=== PATIENT | male | born 1985 | race Caucasian/White ===

== ENCOUNTER 2020-04-21 07:06 | Outpatient (REF) | payer OTHER, SELFPAY ==
[2020-04-21 07:30] LABS: COVID-19 Test Negative (Negative)
== END 2020-04-21 07:07 | disposition home or self-care (01) ==
LOC: HO.EMPCOV 07:06
PROVIDERS: Visit Provider Internal Medicine
DX: Z20.828 Contact with and (suspected) exposure to other viral communicable diseases (principal)
CPT/HCPCS: 87635; C9803

== ENCOUNTER 2022-06-19 13:55 | Emergency (ER) | payer OTHER, SELFPAY ==
--- NOTE | 2022-06-19 14:16 | ECG_ITS ---
Test Reason : cp Blood Pressure : / mmHG Vent. Rate : 080 BPM Atrial Rate : 080 BPM P-R Int : 142 ms QRS Dur : 092 ms QT Int : 360 ms P-R-T Axes : 047 023 039 degrees QTc Int : 415 ms Normal sinus rhythm with sinus arrhythmia Normal ECG No previous ECGs available Referred By: Generic ED Physician Electronically Signed By:DIANDRA MOTTA MD
[2022-06-19 14:49] VITALS: BP 135/86; PULSE 79; RESP 16; O2SAT 97; BMI 28.8
--- NOTE | 2022-06-19 14:50 | ED_ITS ---
HPI - General Adult General Chief complaint: Abdominal Pain <NAHOMY Cagle Last Filed: 07/02/22 09:39> Stated complaint: Chest pain <NAHOMY Cagle Last Filed: 07/02/22 09:39> Time Seen by Provider: 06/19/22 15:57 <NAHOMY Cagle Last Filed: 07/02/22 09:39> Source: patient <NAHOMY Gonzales Last Filed: 06/19/22 18:49> Mode of arrival: ambulatory <NAHOMY Gonzales Last Filed: 06/19/22 18:49> History of Present Illness HPI narrative: 36-year-old male with no significant medical history presenting to the ED complaining of epigastric abdominal pain radiating to chest x1 week. Admits pain initially intermittent and now constant. He denies change in symptoms with eating. Denies fever, chills, nausea, vomiting, dysuria/hematuria, SOB <NAHOMY Gonzales Last Filed: 06/19/22 18:49> Onset (ago): week(s) <NAHOMY Gonzales Last Filed: 06/19/22 18:49> Related Data Home medications: Previous Rx's Medication Instructions Recorded aluminum-mag hydroxide-simethicone 5 ml PO 5XD PRN dyspepsia #30 mL 06/19/22 200 mg-200 mg-20 mg/5 mL oral susp (Maalox Advanced) omeprazole 20 mg capsule,delayed 20 mg PO DAILY #14 caps 06/19/22 release <NAHOMY Cagle Last Filed: 07/02/22 09:39> Allergies/adverse reactions: Allergies Allergy/AdvReac Type Severity Reaction Status Date / Time No Known Allergies Allergy Verified 06/19/22 14:49 <NAHOMY Cagle Last Filed: 07/02/22 09:39> Review of Systems Review of Systems: Constitutional: No Fever, No Chills, No Fatigue, No Malaise ENT/Mouth: No Ear Pain, No Nasal Congestion, No sore throat, No Rhinorrhea, No Swallowing Difficulty Cardiovascular: + Chest Pain, No SOB, No Edema, No Palpitations Respiratory: No Cough, No Sputum, No Dyspnea Gastrointestinal: No Nausea, No Vomiting, No Diarrhea, No Constipation, + Abdominal pain Genitourinary: No Dysuria, No Urinary Frequency, No Hematuria, No Urinary Incontinence/retention, No Flank Pain Musculoskeletal: No joint pain, No Myalgias, No Joint Swelling Skin: No Skin Lesions, No rash Neuro: No Weakness, No Dizziness, No Headache <NAHOMY Gonzales Last Filed: 06/19/22 18:49> Yes all other systems are reviewed and are negative <NAHOMY Gonzales - Last Filed: 06/19/22 18:49> Constitutional: Constitutional: Reports as per HPI <NAHOMY Gonzales - Last Filed: 06/19/22 18:49> [facility] Past Medical History Attestation statement: The following information was validated with the patient. <NAHOMY Gonzales Last Filed: 06/19/22 18:49> Social History Social History: Social History Advance Directives: No Advance Directives Information Provided: Yes <NAHOMY Cagle - Last Filed: 07/02/22 09:39> Physical Exam ED Vital Signs: Vital Signs - 24 hr 06/19/22 14:49 Pulse Rate 79 Respiratory Rate 16 Blood Pressure 135/86 Pulse Oximetry 97 Oxygen Delivery Method Room Air BMI result Body Mass Index 28.8 <NAHOMY Cagle - Last Filed: 07/02/22 09:39> Vital Signs - 24 hr 06/19/22 14:49 Pulse Rate 79 Respiratory Rate 16 Blood Pressure 135/86 Pulse Oximetry 97 Oxygen Delivery Method Room Air BMI result Body Mass Index 28.8 <NAHOMY Gonzales Last Filed: 06/19/22 18:49> Const General: cooperative, healthy appearing and no acute distress <NAHOMY Gonzales Last Filed: 06/19/22 18:49> Orientation/consciousness: patient oriented x3 <NAHOMY Gonzales Last Filed: 06/19/22 18:49> Limitations: no limitations <NAHOMY Gonzales Last Filed: 06/19/22 18:49> HENMT Head: Yes normal to inspection and Yes atraumatic <NAHOMY Gonzales - Last Filed: 06/19/22 18:49> Ears: hearing grossly normal bilaterally <Yudy Whittaker PA - Last Filed: 06/19/22 18:49> General nose exam: Normal external nose present <Yudy Whittaker PA - Last Filed: 06/19/22 18:49> Face and sinus: Yes normal facial exam <Yudy Whittaker PA - Last Filed: 06/19/22 18:49> Eyes General: appearance normal, both eyes and all related structures <Yudy Whittaker PA - Last Filed: 06/19/22 18:49> EOM: EOMs intact bilaterally <Yudy Whittaker PA - Last Filed: 06/19/22 18:49> Neck Neck: Yes normal visual inspection and Yes no meningeal signs <Yudy Whittaker PA - Last Filed: 06/19/22 18:49> Resp Effort & Inspection: normal respiratory effort and no respiratory distress <Yudy Whittaker PA - Last Filed: 06/19/22 18:49> Auscultation: clear to auscultation bilaterally, no crackles, no rales and no rhonchi <Yudy Whittaker PA - Last Filed: 06/19/22 18:49> Cardio Rate: regular rate <Yudy Whittaker PA - Last Filed: 06/19/22 18:49> Heart sounds: S1 normal heart sound present and S2 normal heart sound present <Yudy Whittaker PA - Last Filed: 06/19/22 18:49> GI Inspection: Yes normal to inspection <Yudy Whittaker PA - Last Filed: 06/19/22 18:49> Palpation (GI): Soft to palpation, Tenderness to palpation present (GI) in the epigastrum; Pritchett's sign negative and with no rebound tenderness, no guarding and not rigid <Yudy Whittaker PA - Last Filed: 06/19/22 18:49> General: Yes no CVA tenderness <Yudy Whittaker PA - Last Filed: 06/19/22 18:49> Back/Spine/Pelvis Back: no CVA tenderness <Yudy Whittaker PA - Last Filed: 06/19/22 18:49> Skin Rashes: no rashes <YudyNAHOMY Gann Last Filed: 06/19/22 18:49> Wounds: no wounds <NAHOMY Gonzales Last Filed: 06/19/22 18:49> Neuro General: patient oriented x3, tone normal and no meningeal signs <NAHOMY Gonzales Last Filed: 06/19/22 18:49> Gait exam (Neuro): Normal gait present <NAHOMY Gonzales Last Filed: 06/19/22 18:49> Extrem General: Yes normal to inspection <NAHOMY Gonzales Last Filed: 06/19/22 18:49> Course Course Course Narrative: RME: 36 yold male presents to the ED for epigastric pain for one week. patient states no nausea or emesis. Patient states no recent trauma. patient staes at times having burning sensation at night. EKG already done and labs ordered. positive for epigastric tenderness on palpation. negative pritchett sign <NAHOMY Cagle Last Filed: 07/02/22 09:39> RME: 36 yold male presents to the ED for epigastric pain for one week. patient states no nausea or emesis. Patient states no recent trauma. patient staes at times having burning sensation at night. EKG already done and labs ordered. positive for epigastric tenderness on palpation. negative pritchett sign -1755--no leukocytosis. H&H stable. BUN minimally elevated to 18. Initial troponin 5.2 > will obtain 3 hour repeat -1849--repeat troponin without 50% rise, [place] unlikely Results discussed with patient including worrisome signs and symptoms and strict return precautions, and when to return to the emergency department. They verbalized understanding and feel safe for discharge at this time. <NAHOMY Gonzales Last Filed: 06/19/22 18:49> Medications Administered Discontinued Medications Generic Name Dose Route Start Last Admin Trade Name Freq PRN Reason Stop Dose Admin Al Hydroxide/Mg Hydroxide 30 ml 06/19/22 16:04 06/19/22 18:26 Magnesium Hydrox/Alum Hydrox 30 Ml Oral.Susp PO 06/19/22 16:05 30 ml ONCE ONE Administration Famotidine 20 mg 06/19/22 16:04 06/19/22 18:26 Famotidine 20 Mg Tablet PO 06/19/22 16:05 20 mg ONCE ONE Administration Lidocaine HCl 15 ml 06/19/22 16:04 06/19/22 18:26 Lidocaine Hcl Viscous 2 % 15 Ml Solution MUCOUS MEM 06/19/22 16:05 15 ml ONCE ONE Administration <NAHOMY Cagle - Last Filed: 07/02/22 09:39> Medications Administered Discontinued Medications Generic Name Dose Route Start Last Admin Trade Name Aubree PRN Reason Stop Dose Admin Al Hydroxide/Mg Hydroxide 30 ml 06/19/22 16:04 06/19/22 18:26 Magnesium Hydrox/Alum Hydrox 30 Ml Oral.Susp PO 06/19/22 16:05 30 ml ONCE ONE Administration Famotidine 20 mg 06/19/22 16:04 06/19/22 18:26 Famotidine 20 Mg Tablet PO 06/19/22 16:05 20 mg ONCE ONE Administration Lidocaine HCl 15 ml 06/19/22 16:04 06/19/22 18:26 Lidocaine Hcl Viscous 2 % 15 Ml Solution MUCOUS MEM 06/19/22 16:05 15 ml ONCE ONE Administration <NAHOMY Gonzales - Last Filed: 06/19/22 18:49> Medical Decision Making Medical Decision Making MDM Narrative: 36-year-old male with no significant medical history presenting to the ED complaining of epigastric abdominal pain radiating to chest x1 week. On exam vital signs stable, NAD, nontoxic appearing, lungs CTA, abdomen soft with mild epigastric tenderness, no rebound or guarding. Concern for gastritis/GERD vs PUD vs pancreatitis. Symptoms atypical for ACS or PE. Lower suspicion for cholecystitis/lithiasis or renal stone/pyelo Plan: EKG, labs, COVID-19/influenza/RSV testing, GI cocktail Please refer to course for remaining clinical decision making, interpretation of labs/imaging results, and discussions with consultants and/or family members. <NAHOMY Gonzales - Last Filed: 06/19/22 18:49> Differential Diagnosis Differential Diagnoses: The differential diagnosis associated with the presentation includes <NAHOMY Gonzales - Last Filed: 06/19/22 18:49> as above <NAHOMY Gonzales - Last Filed: 06/19/22 18:49> Lab Data [facility] Lab Attestation statement: I reviewed the patient's lab results. <NAHOMY Gonzales - Last Filed: 06/19/22 18:49> Result Diagrams: 06/19/22 15:30 06/19/22 15:30 <NAHOMY Cagle - Last Filed: 07/02/22 09:39> Labs: Lab Results 06/19/22 06/19/22 06/19/22 Range/Units 15:30 15:30 15:30 WBC 9.9 (4.8-10.8) X10*3/uL RBC 5.23 (4.60-5.80) X10*6/uL Hgb 13.5 L (14.0-18.0) g/dl Hct 41.7 L (42.0-52.0) % MCV 79.7 L (80.0-98.0) fL MCH 25.8 L (27.0-33.0) pg MCHC 32.4 (31.0-36.0) g/dl RDW 14.6 (11.0-16.0) % Plt Count 336 (160-400) X10*3/uL MPV 9.6 (9.4-12.4) fL Immature Gran % (Auto) 0.2 (0.0-0.4) % Neut % (Auto) 68.0 (45-73) % Lymph % (Auto) 19.2 L (20-40) % [place] % (Auto) 7.4 (2-11) % Eos % (Auto) 4.2 H (0-4) % Baso % (Auto) 1.0 (0-2) % Lymph # (Auto) 1.9 (1.2-4.9) X10*3/uL [place] # (Auto) 0.7 (0.1-1.2) X10*3/uL Eos # (Auto) 0.4 (0.0-0.4) X10*3/uL Baso # (Auto) 0.1 (0.0-0.2) X10*3/uL Abs Immat Gran (auto) 0.02 (0.00-0.03) X10*3/uL Absolute Neuts (auto) 6.8 (2.0-8.3) x10*3/uL Absolute Nucleated RBC 0.000 (0.0-0.012) X10*3/uL Nucleated RBC % (auto) 0.0 (0.0-0.2) /100WBC PT 11.4 (10.0-13.1) SEC INR 1.0 (0.9-1.1) APTT 31.2 (26.0-36.4) SEC Sodium 138 (135-145) mmol/L Potassium 4.1 (3.3-5.1) mmol/L Chloride 105 (96-108) mmol/L Carbon Dioxide 25 (22-29) mmol/L Anion Gap 12 (12-20) BUN 18 H (9-16) mg/dL Creatinine 0.88 (0.5-1.4) mg/dL Estim Creat Clear Calc 149.3 Estimated GFR > 60 Random Glucose 95 (60-115) mg/dL Calcium 9.4 (8.4-10.2) mg/dL Magnesium 1.9 (1.6-2.6) mg/dL Total Bilirubin 0.4 (0.0-1.0) mg/dL AST 22 (5-37) U/L ALT 22 (0-40) U/L Alkaline Phosphatase 64 (39-117) U/L Troponin I High Sens (<3.5-35.0) ng/L Total Protein 7.2 (6.5-8.0) g/dL Albumin 4.4 (3.5-5.0) g/dL Lipase 48 (8-78) U/L Influenza Type A (PCR) (Negative) Influenza Type B (PCR) (Negative) RSV RNA Qual (PCR) (Negative) SARS-CoV-2 RNA (RT-PCR) (Negative) 06/19/22 06/19/22 06/19/22 Range/Units 15:30 15:30 18:02 WBC (4.8-10.8) X10*3/uL RBC (4.60-5.80) X10*6/uL Hgb (14.0-18.0) g/dl Hct (42.0-52.0) % MCV (80.0-98.0) fL MCH (27.0-33.0) pg MCHC (31.0-36.0) g/dl RDW (11.0-16.0) % Plt Count (160-400) X10*3/uL MPV (9.4-12.4) fL Immature Gran % (Auto) (0.0-0.4) % Neut % (Auto) (45-73) % Lymph % (Auto) (20-40) % [place] % (Auto) (2-11) % Eos % (Auto) (0-4) % Baso % (Auto) (0-2) % Lymph # (Auto) (1.2-4.9) X10*3/uL [place] # (Auto) (0.1-1.2) X10*3/uL Eos # (Auto) (0.0-0.4) X10*3/uL Baso # (Auto) (0.0-0.2) X10*3/uL Abs Immat Gran (auto) (0.00-0.03) X10*3/uL Absolute Neuts (auto) (2.0-8.3) x10*3/uL Absolute Nucleated RBC (0.0-0.012) X10*3/uL Nucleated RBC % (auto) (0.0-0.2) /100WBC PT (10.0-13.1) SEC INR (0.9-1.1) APTT (26.0-36.4) SEC Sodium (135-145) mmol/L Potassium (3.3-5.1) mmol/L Chloride (96-108) mmol/L Carbon Dioxide (22-29) mmol/L Anion Gap (12-20) BUN (9-16) mg/dL Creatinine (0.5-1.4) mg/dL Estim Creat Clear Calc Estimated GFR Random Glucose (60-115) mg/dL Calcium (8.4-10.2) mg/dL Magnesium (1.6-2.6) mg/dL Total Bilirubin (0.0-1.0) mg/dL AST (5-37) U/L ALT (0-40) U/L Alkaline Phosphatase (39-117) U/L Troponin I High Sens 5.2 6.4 (<3.5-35.0) ng/L Total Protein (6.5-8.0) g/dL Albumin (3.5-5.0) g/dL Lipase (8-78) U/L Influenza Type A (PCR) NEGATIVE (Negative) Influenza Type B (PCR) NEGATIVE (Negative) RSV RNA Qual (PCR) NEGATIVE (Negative) SARS-CoV-2 RNA (RT-PCR) NEGATIVE (Negative) <NAHOMY Cagle - Last Filed: 07/02/22 09:39> Lab Results 06/19/22 06/19/22 06/19/22 Range/Units 15:30 15:30 15:30 WBC 9.9 (4.8-10.8) X10*3/uL RBC 5.23 (4.60-5.80) X10*6/uL Hgb 13.5 L (14.0-18.0) g/dl Hct 41.7 L (42.0-52.0) % MCV 79.7 L (80.0-98.0) fL MCH 25.8 L (27.0-33.0) pg MCHC 32.4 (31.0-36.0) g/dl RDW 14.6 (11.0-16.0) % Plt Count 336 (160-400) X10*3/uL MPV 9.6 (9.4-12.4) fL Immature Gran % (Auto) 0.2 (0.0-0.4) % Neut % (Auto) 68.0 (45-73) % Lymph % (Auto) 19.2 L (20-40) % [place] % (Auto) 7.4 (2-11) % Eos % (Auto) 4.2 H (0-4) % Baso % (Auto) 1.0 (0-2) % Lymph # (Auto) 1.9 (1.2-4.9) X10*3/uL [place] # (Auto) 0.7 (0.1-1.2) X10*3/uL Eos # (Auto) 0.4 (0.0-0.4) X10*3/uL Baso # (Auto) 0.1 (0.0-0.2) X10*3/uL Abs Immat Gran (auto) 0.02 (0.00-0.03) X10*3/uL Absolute Neuts (auto) 6.8 (2.0-8.3) x10*3/uL Absolute Nucleated RBC 0.000 (0.0-0.012) X10*3/uL Nucleated RBC % (auto) 0.0 (0.0-0.2) /100WBC PT 11.4 (10.0-13.1) SEC INR 1.0 (0.9-1.1) APTT 31.2 (26.0-36.4) SEC Sodium 138 (135-145) mmol/L Potassium 4.1 (3.3-5.1) mmol/L Chloride 105 (96-108) mmol/L Carbon Dioxide 25 (22-29) mmol/L Anion Gap 12 (12-20) BUN 18 H (9-16) mg/dL Creatinine 0.88 (0.5-1.4) mg/dL Estim Creat Clear Calc 149.3 Estimated GFR > 60 Random Glucose 95 (60-115) mg/dL Calcium 9.4 (8.4-10.2) mg/dL Magnesium 1.9 (1.6-2.6) mg/dL Total Bilirubin 0.4 (0.0-1.0) mg/dL AST 22 (5-37) U/L ALT 22 (0-40) U/L Alkaline Phosphatase 64 (39-117) U/L Troponin I High Sens (<3.5-35.0) ng/L Total Protein 7.2 (6.5-8.0) g/dL Albumin 4.4 (3.5-5.0) g/dL Lipase 48 (8-78) U/L Influenza Type A (PCR) (Negative) Influenza Type B (PCR) (Negative) RSV RNA Qual (PCR) (Negative) SARS-CoV-2 RNA (RT-PCR) (Negative) 06/19/22 06/19/22 06/19/22 Range/Units 15:30 15:30 18:02 WBC (4.8-10.8) X10*3/uL RBC (4.60-5.80) X10*6/uL Hgb (14.0-18.0) g/dl Hct (42.0-52.0) % MCV (80.0-98.0) fL MCH (27.0-33.0) pg MCHC (31.0-36.0) g/dl RDW (11.0-16.0) % Plt Count (160-400) X10*3/uL MPV (9.4-12.4) fL Immature Gran % (Auto) (0.0-0.4) % Neut % (Auto) (45-73) % Lymph % (Auto) (20-40) % [place] % (Auto) (2-11) % Eos % (Auto) (0-4) % Baso % (Auto) (0-2) % Lymph # (Auto) (1.2-4.9) X10*3/uL [place] # (Auto) (0.1-1.2) X10*3/uL Eos # (Auto) (0.0-0.4) X10*3/uL Baso # (Auto) (0.0-0.2) X10*3/uL Abs Immat Gran (auto) (0.00-0.03) X10*3/uL Absolute Neuts (auto) (2.0-8.3) x10*3/uL Absolute Nucleated RBC (0.0-0.012) X10*3/uL Nucleated RBC % (auto) (0.0-0.2) /100WBC PT (10.0-13.1) SEC INR (0.9-1.1) APTT (26.0-36.4) SEC Sodium (135-145) mmol/L Potassium (3.3-5.1) mmol/L Chloride (96-108) mmol/L Carbon Dioxide (22-29) mmol/L Anion Gap (12-20) BUN (9-16) mg/dL Creatinine (0.5-1.4) mg/dL Estim Creat Clear Calc Estimated GFR Random Glucose (60-115) mg/dL Calcium (8.4-10.2) mg/dL Magnesium (1.6-2.6) mg/dL Total Bilirubin (0.0-1.0) mg/dL AST (5-37) U/L ALT (0-40) U/L Alkaline Phosphatase (39-117) U/L Troponin I High Sens 5.2 6.4 (<3.5-35.0) ng/L Total Protein (6.5-8.0) g/dL Albumin (3.5-5.0) g/dL Lipase (8-78) U/L Influenza Type A (PCR) NEGATIVE (Negative) Influenza Type B (PCR) NEGATIVE (Negative) RSV RNA Qual (PCR) NEGATIVE (Negative) SARS-CoV-2 RNA (RT-PCR) NEGATIVE (Negative) <NAHOMY Gonzales Last Filed: 06/19/22 18:49> Independent Interpretation I performed an independent interpretation of an: EKG <NAHOMY Gonzales Last Filed: 06/19/22 18:49> Interpretation: My interpretation: EKG normal sinus rhythm and sinus arrhythmia at a rate of 80. QTC 415. No STEMI. Nonischemic. No previous to compare <NAHOMY Gonzales Last Filed: 06/19/22 18:49> Discharge Plan Discharge Clinical Impression: Epigastric abdominal pain <NAHOMY Cagle Last Filed: 07/02/22 09:39> Patient Disposition: Home, Self-Care <NAHOMY Cagle Last Filed: 07/02/22 09:39> Instructions: Chest Pain (DC), Abdominal Pain (ED) <NAHOMY Cagle Last Filed: 07/02/22 09:39> Additional Instructions: Your blood work was reassuring. Please follow-up with Cardiology and Gastroenterology as well as your doctor If symptoms persist/worsen, become more constant, your shortness of breath or fever return to the emergency department Maalox and Pepcid will help with acid reduction in her stomach. <NAHOMY Cagle Last Filed: 07/02/22 09:39> Prescriptions: New omeprazole 20 mg capsule,delayed release(DR/EC) 20 mg PO DAILY Qty: 14 0RF alum-mag hydroxide-simeth [Maalox Advanced] 200-200-20 mg/5 mL suspension 5 ml PO 5XD PRN (Reason: dyspepsia) Qty: 30 0RF Rx Instructions: administer between meals and at bedtime <NAHOMY Cagle Last Filed: 07/02/22 09:39> Referrals: [facility] Cardiovascular Services [Provider Group] [facility] Gastroenterology Services [Provider Group] <NAHOMY Cagle Last Filed: 07/02/22 09:39> Interventions: ED Discharge Assessment Last Done: 06/19/22 18:54 <NAHOMY Cagle Last Filed: 07/02/22 09:39> Discharge Date/Time: 06/19/22 18:55 <NAHOMY Cagle - Last Filed: 07/02/22 09:39>
[2022-06-19 15:39] LABS: Basophils Absolute Auto 0.1 X10*3/uL (0.0-0.2); Eosinophils Absolute Auto 0.4 X10*3/uL (0.0-0.4); Eosinophils Percent Auto 4.2 % (0-4); Hematocrit 41.7 % (42.0-52.0); Hemoglobin 13.5 g/dl (14.0-18.0); Imm Gran Abs Auto 0.02 X10*3/uL (0.00-0.03); Imm Gran Pct Auto 0.2 % (0.0-0.4); Lymphocytes Absolute Auto 1.9 X10*3/uL (1.2-4.9); Lymphocytes Percent Auto 19.2 % (20-40); MANUAL DIFF FLAG NO; Mean Corpuscular HGB Conc 32.4 g/dl (31.0-36.0); Mean Corpuscular Hemoglobin 25.8 pg (27.0-33.0); Mean Corpuscular Volume 79.7 fL (80.0-98.0); Mean Platelet Volume 9.6 fL (9.4-12.4); Monocytes Absolute Auto 0.7 X10*3/uL (0.1-1.2); Monocytes Percent Auto 7.4 % (2-11); Neutrophils Absolute Auto 6.8 x10*3/uL (2.0-8.3); Platelet Count 336 X10*3/uL (160-400); Red Blood Count 5.23 X10*6/uL (4.60-5.80); Red Cell Distribution Width 14.6 % (11.0-16.0); White Blood Count 9.9 X10*3/uL (4.8-10.8)
[2022-06-19 15:51] LABS: Prothrombin Time 11.4 SEC (10.0-13.1)
[2022-06-19 15:53] LABS: Partial Thromboplastin Time 31.2 SEC (26.0-36.4)
[2022-06-19 15:55] LABS: Alanine Aminotransferase 22 U/L (0-40); Albumin Level 4.4 g/dL (3.5-5.0); Alkaline Phosphatase 64 U/L (39-117); Anion Gap 12 (12-20); Aspartate Amino Transferase 22 U/L (5-37); Bilirubin Total 0.4 mg/dL (0.0-1.0); Blood Urea Nitrogen 18 mg/dL (9-16); Calcium 9.4 mg/dL (8.4-10.2); Carbon Dioxide 25 mmol/L (22-29); Chloride 105 mmol/L (96-108); Creatinine Clr Calc Pharmacy 149.3; Estimated Glomerular Filt Rate > 60; Glucose Random 95 mg/dL (60-115); Lipase 48 U/L (8-78); Potassium 4.1 mmol/L (3.3-5.1); Sodium 138 mmol/L (135-145); Total Protein 7.2 g/dL (6.5-8.0)
[2022-06-19 16:01] LABS: Troponin-I High Sensitivity 5.2 ng/L (<3.5-35.0)
[2022-06-19 16:19] LABS: Influenza A PCR NEGATIVE (Negative); Influenza B PCR NEGATIVE (Negative); Resp Syncy Virus RNA Qual PCR NEGATIVE (Negative); SARS COV2 PCR INHOUSE NEGATIVE (Negative)
[2022-06-19 16:25] LABS: Magnesium 1.9 mg/dL (1.6-2.6)
[2022-06-19] MEDS: Magnesium Hydrox/Alum Hydrox 30 ML ORAL.SUSP PO (18:26)
[2022-06-19] MEDS: Famotidine 20 MG TABLET PO (18:26)
[2022-06-19] MEDS: Lidocaine HCl Viscous 2 % 15 ML SOLUTION MUCOUS MEM (18:26)
[2022-06-19 18:27] LABS: Troponin-I High Sensitivity 6.4 ng/L (<3.5-35.0)
== END 2022-06-19 18:55 | disposition home or self-care (01) ==
PROVIDERS: Physician Assistant; Emergency Provider Emergency Medicine Emergency Medical Services; PCP Family Medicine
DX: R07.89 Other chest pain (principal); R10.13 Epigastric pain; Z20.822 Contact with and (suspected) exposure to COVID-19; Z20.828 Contact with and (suspected) exposure to other viral communicable diseases; Z79.899 Other long term (current) drug therapy
CPT/HCPCS: 0241U; 36415; 80053; 83690; 83735; 84484; 85025; 85610; 85730; 93005; 99283

== ENCOUNTER 2023-04-03 12:49 | Outpatient (AMB) | payer OTHER, SELFPAY ==
--- NOTE | 2023-04-03 12:50 | MHC.OFFVIS ---
Intake Vital Signs 04/03/23 12:53 Height 6 ft 2 in Weight 220 lb 7.396 oz BMI 28.3 BP 142/80 H Blood Pressure Location Lt brachial Position Sitting Pulse 70 Intake Visit Reasons: Nausea, Abdominal Discomfort, Diarrhea Intake Note: Lane presents in the office as a new patient for nausea, abdominal discomfort and diarrhea. CC: He states that the nausea is not as much but he is having diarrhea and abdominal discomfort. Sometimes in the LLQ. He states that sometimes there is blood when he has a BM. Allergies No Known Allergies Allergy (Verified 04/03/23 12:53) HPI Nausea, Abdominal Discomfort, Diarrhea HPI Details 37-year-old male here for initial evaluation of nausea and diarrhea. He is referred by Eamon Mcnulty MD of [facility]. PMX ? Childhood asthma * SURGICAL HISTORY * ALLERGIES: NKDA * PCP supplied LABS: 09/27/2022 unremarkable renal panel, unremarkable hepatic panel, amylase is normal lipase is elevated at 922, CBC is unremarkable with no leukocytosis and platelets are normal. Laboratory Tests 06/19/22 15:30 WBC 9.9 Hgb 13.5 L Hct 41.7 L MCV 79.7 L MCH 25.8 L Plt Count 336 Estimated GFR > 60 Total Bilirubin 0.4 AST 22 ALT 22 Alkaline Phosphata se 64 ULTRASOUND OF THE ABDOMEN 09/27/2022 [facility] FINDINGS PANCREAS: Pancreas is not well visualized sonographically due to overlying bowel gas LIVER: Normal GALLBLADDER: Normal, physiologically distended no evidence of sludge polyps stones or wall thickening. Common bile duct not visualized. IMPRESSION No sonographic abnormality to explain the patient's pain. TODAY'S VISIT Onset this year with a change in his stools with looser stools and abd discomfort. He saw his PCP and he was sent for an US at [facility] to r/o GB disease (father and grandfather had choles) - but US was negative. His usual BM was formed and daily. He can not ID any medication change, diet change, illness, etc prior to this. He has a lot borborygmus and crampy discomfort. He is unsure if he has had blood or mucus in his stools. He will move his bowels anywhere from several times day to once a day and I will think I am getting better. The stools have generally been bottle washer machine in color and more yellow. He can not ID any pattern of foods that set it off. He has not tried any OTC treatments. No known FHX of similar sx or IBD, food allergies etc. Will get GI panel, repeat lipase (was high), ROV 3 weeks. [facility] Social History (Updated 04/03/23 @ 12:54 by LUANN Mooney) Household Members: None Alcohol intake: current Alcohol intake frequency: holidays/special occasions only Patient Tobacco Use Status: Never used Tobacco Review of Systems Const Denies fatigue, Denies fever(s), Denies night sweats, Denies poor appetite and Denies weight loss Eyes Details: glasses Reports requires corrective lenses ENT Reports Normal hearing present, Denies dental pain, Denies dysphagia, Denies hearing loss, Denies mouth pain, Denies odynophagia, Denies throat swelling, Denies tongue swelling and Reports other (Dentition adequate) Card Reports no additional complaints Resp Reports no additional complaints GI Denies abdominal pain, Denies melena, Denies bloating, Denies hematochezia, Denies constipation, Denies GI cramping, Denies dysphagia, Denies excessive flatus, Denies early satiety, Reports heartburn, Reports diarrhea, Reports nausea, Denies odynophagia, Reports vomiting and Denies hematemesis Skin/Breast Denies pruritus, Denies lesions, Denies rash and Denies jaundice Neuro Reports Normal hearing present and Denies Abnormal speech present Endo Denies fatigue Aller/Immun Denies throat swelling and Denies tongue swelling Physical Exam Vital Signs: Last Vital Signs Pulse 70 04/03/23 12:53 BP 142/80 H 04/03/23 12:53 BMI result Body Mass Index 28.3 Const General: cooperative, no acute distress, well developed and well groomed Nutritional Appearance: average body habitus and well nourished Orientation/consciousness: oriented to person, oriented to place and oriented to time Limitations: No language barrier HEENT Head: Yes normocephalic and Yes atraumatic Eyes General: appearance normal, both eyes and all related structures Pupils: Equal, round and reactive pupils present Neck Neck: Yes normal visual inspection and Yes no lymphadenopathy Thyroid: Thyroid normal Resp Effort & Inspection: normal respiratory effort and able to speak in complete sentences Auscultation: clear to auscultation bilaterally Cardio Rate: regular rate Rhythm: regular rhythm Heart sounds: Normal, physiologic split S2 sound present Peripheral pulses: radial pulses present and posterior tibial pulses present GI Inspection: No distended and No Abdominal panniculus present Palpation (GI): Soft to palpation, nontender, no guarding, not rigid and No hepatosplenomegaly present Percussion: Yes normal to percussion Auscultation: normal bowel sounds Rectal Exam - Male: Yes deferred Skin General skin exam: no rashes or lesions noted, turgor normal, skin not dry, no jaundice, No spider nevi and no striae Rashes: no rashes Nails: normal Neuro General: oriented to person, oriented to place and oriented to time Cranial nerves: Yes Equal, round and reactive pupils present and Yes Normal hearing present Speech: No Abnormal speech present Extrem General: Yes normal to inspection, No clubbing, No cyanosis and No edema Psych Appearance: grossly normal and well kempt Mental Status: mental status grossly normal Speech and movement: Normal speech and movement present Affect: normal affect Attitude: cooperative Thought process: Normal thought process present and not confabulating Thought content: Normal thought content present Insight: Limited insight present (Psych) Judgement: Limited judgement present (Psych) Assessment & Plan Assessment & Plan (1) Diarrhea: Code(s): R19.7 - Diarrhea, unspecified (2) Elevated lipase: Code(s): R74.8 - Abnormal levels of other serum enzymes Plan Onset this year with a change in his stools with looser stools and abd discomfort. He saw his PCP and he was sent for an US at [facility] to r/o GB disease (father and grandfather had choles) - but US was negative. His usual BM was formed and daily. He can not ID any medication change, diet change, illness, etc prior to this. He has a lot borborygmus and crampy discomfort. He is unsure if he has had blood or mucus in his stools. He will move his bowels anywhere from several times day to once a day and I will think I am getting better. The stools have generally been bottle washer machine in color and more yellow. He can not ID any pattern of foods that set it off. He has not tried any OTC treatments. No known FHX of similar sx or IBD, food allergies etc. Will get GI panel, repeat lipase (was high), ROV 3 weeks. Orders: Orders GI Panel 04/03/23 R19.7 - Diarrhea, unspecified Transglutaminase IgA 04/03/23 R19.7 - Diarrhea, unspecified Transglutaminase Ab IgG 04/03/23 R19.7 - Diarrhea, unspecified Lipase 04/03/23 R74.8 - Abnormal levels of other serum enzymes C Reactive Protein 04/03/23 R19.7 - Diarrhea, unspecified Calprotectin, Fecal 04/03/23 R19.7 - Diarrhea, unspecified CDiff Gene PCR 04/03/23 R19.7 - Diarrhea, unspecified Rast Allergen 04/03/23 R19.7 - Diarrhea, unspecified TSH reflex Free T4 04/03/23 R19.7 - Diarrhea, unspecified Pancreatic Elastase-1 04/03/23 R19.7 - Diarrhea, unspecified Amylase 04/03/23 R74.8 - Abnormal levels of other serum enzymes Coding Level of Care Code New Pt Level 3 (51639) Diagnoses Diarrhea R19.7 Elevated lipase R74.8
[2023-04-03 12:53] VITALS: BP 142/80; PULSE 70; BMI 28.3
== END 2023-04-03 13:43 | disposition home or self-care (01) ==
PROVIDERS: PCP Family Medicine; Visit Provider Nurse Practitioner
DX: R19.7 Diarrhea, unspecified (principal); R74.8 Abnormal levels of other serum enzymes
CPT/HCPCS: 99203

== ENCOUNTER → 2023-04-03 12:49 | Outpatient (BNVA) | payer OTHER, SELFPAY | PROVIDERS: PCP Family Medicine; Visit Provider Internal Medicine ==

== ENCOUNTER 2023-04-16 11:24 | Outpatient (REF) | payer OTHER, SELFPAY ==
[2023-04-16 12:38] LABS: Amylase 59 U/L (28-100); C Reactive Protein < 0.10 mg/dL (< or = 0.50); Lipase 43 U/L (8-78)
[2023-04-16 12:47] LABS: TSH reflex Free T4 0.91 uIU/mL (0.32-4.0)
[2023-04-16 13:54] LABS: Adenovirus F 40/41 Not Detected (Not Detect.); Astrovirus Not Detected (Not Detect.); Campylobacter Not Detected (Not Detect.); Cryptosporidium Not Detected (Not Detect.); Cyclospora cayetanensis Not Detected (Not Detect.); E. coli EAEC Not Detected (Not Detect.); E. coli EPEC Not Detected (Not Detect.); E. coli ETEC Not Detected (Not Detect.); E. coli STEC Not Detected (Not Detect.); Entamoeba histolytica Not Detected (Not Detect.); Giardia lamblia Not Detected (Not Detect.); Norovirus GI/GII Not Detected (Not Detect.); Plesiomonas shigelloides Not Detected (Not Detect.); Rotavirus A Not Detected (Not Detect.); Salmonella Not Detected (Not Detect.); Sapovirus Not Detected (Not Detect.); Shigella sp./EIEC Not Detected (Not Detect.); Vibrio Not Detected (Not Detect.); Vibrio Cholerae Not Detected (Not Detect.); Yersinia enterocolitica Not Detected (Not Detect.)
[2023-04-16 16:25] LABS: CDiff Gene PCR NEGATIVE (Negative)
[2023-04-18 20:44] LABS: Transglutaminase Ab IgG 6.5 U/mL; Transglutaminase IgA 77.6 U/mL
[2023-04-22 21:09] LABS: Calprotectin, Fecal 12 mcg/g
[2023-04-23 18:43] LABS: Pancreatic Elastase-1 >500 mcg/g
== END 2023-04-16 11:25 | disposition home or self-care (01) ==
LOC: HO.LAB 11:24
PROVIDERS: Visit Provider Nurse Practitioner
DX: R19.7 Diarrhea, unspecified (principal); R74.8 Abnormal levels of other serum enzymes
CPT/HCPCS: 36415; 82150; 82656; 83690; 83993; 84443; 86003; 86140; 86364; 87493; 87507

== ENCOUNTER 2023-08-14 10:32 | Day surgery (SDC) | payer OTHER, SELFPAY ==
[2023-08-12 14:59] VITALS: BMI 28.3
[2023-08-14 10:57] VITALS: BMI 28.2
--- NOTE | 2023-08-14 11:05 | MHC.SHP ---
Pre-Procedural Eval Section A - 24 Hr Update-Section A only Date of Service: 08/14/23 Section B - Complete if H&P > 30 days Chief Complaint: Chronic idiopathic constipation Relevant Family History (Specify if Yes): No Relevant Social History: None Present Medications: see Short Stay Collaborative assessment Medical History: Significant History (asthma, diarrhea ) History of Previous Operations: No relevant previous surgery Allergies: Allergies Allergy/AdvReac Type Severity Reaction Status Date / Time amoxicillin AdvReac Hives Verified 08/14/23 10:58 Review of Systems Sugical H&P ROS: Negative: Constitution, Cardiovascular, Respiratory, Neurological, Psychiatric, Hem-Onc, Allergic/Immunologic, Gastrointestinal, Genitourinary, Musculoskeletal, Integumentary, Endocrine and Eyes/Ears/Nose/Throat Exam Surgical H&P Exam: Normal: HEENT, Normal: Heart, Normal: Lungs, Normal: Extremities, Normal: Abdomen, Normal: Skin and Normal: Neurological Plan Diagnosis/Plan: Unchanged I have reviewed the history and physical and performed a pertinent physical examination on my patient. No changes have occurred unless specified. Time Spent With Patient Time: Total time managing care of this patient today ____ minutes.
[2023-08-14 11:23] VITALS: BP 133/84; PULSE 69; RESP 14; TEMP 37.1; O2SAT 98
--- NOTE | 2023-08-14 11:44 | HO.ANESPROP2 ---
HPI - Anesthesia Eval Consult details Narrative: for EGD and colonoscopy PMFSH Active Problems Active Problems: All Active Problems (Updated 05/15/23 @ 14:44 by CATHY Pino) Celiac disease (Acute) Diarrhea (Acute) Elevated lipase (Acute) Asthma (Acute) Family History Family history of problems with anesthesia: No Surgical History Surgical History (Updated 08/14/23 @ 10:59 by Samia Mirza RN) No pertinent past surgical history History of Problems with Anesthesia: No Social History Social History (System 07/05/23 @ 11:35 by Ashly Dawn) Household Members: None Alcohol intake: current Alcohol intake frequency: holidays/special occasions only Patient Tobacco Use Status: Never used Tobacco Use of substances other than those prescribed or required for medical reasons: No Are you DNR?: No Advance Directives: No Advance Directives Information Provided: Yes Meds Allergies Allergy/AdvReac Type Severity Reaction Status Date / Time amoxicillin AdvReac Hives Verified 08/14/23 10:58 Exam Height,Weight and Vital Signs: Height 6 ft 2 in Weight 99.79 kg Last Vital Signs Temp 98.7 F 08/14/23 11:23 Pulse 69 08/14/23 11:23 Resp 14 08/14/23 11:23 BP 133/84 08/14/23 11:23 Pulse Ox 98 08/14/23 11:23 O2 Del Method Room Air 08/14/23 11:23 Airway Mallampati Class: I TM Dist: >3cm Neck ROM: Full Loose/Missing/Broken Teeth: No Heart: ok Lungs: ok Assessment and Plan Assessment Anesthesia Assessment: Anesthesia Plan Discussed and Chart Reviewed Final Anesthetic Review Family History of Problems with Anesthesia: No History of Problems with Anesthesia: No NPO: Yes ASA Class: III Final Preanesthetic Review: No Changes in Pt Med Stat, Meds/Allgs Chart Reviewed, Consent Obtained/Reviewed and Anes Risks/Benef Reviewed Patient Risk: Intermediate Procedure Risk: Intermediate Anesthetic Plan Anesthetic Plan: Agree w/ Assess. and Plan and TIVA Disposition: Standard PACU
--- NOTE | 2023-08-14 11:57 | W.PM.OPN ---
Operative Note Operative Note Date of Service: 08/14/23 Narrative: Procedure Description: EGD Indication: pos celiac Ab test Anesthesia: MAC FLEXIBLE TRANSORAL UPPER GASTROINTESTINAL ENDOSCOPY UPPER ENDOSCOPY Consent: Indications for the procedure and potential complications of bleeding, perforation, reaction to medications and missed diagnosis were discussed with the patient and informed consent was obtained. Instrument: Olympus GIF H 190 J mid size upper endoscope Monitoring: Vital signs and clinical assessment, continuous EKG monitoring, Pulse oximetry, Carbon Dioxide monitoring and blood pressure monitoring were done throughout the procedure. Procedure: The patient was placed in the left lateral decubitis position and pre-procedure medications were administered and a bite block was placed. The endoscope was inserted into the mouth and advanced under direct vision to the third part of duodenum. A careful inspection was made as the upper endoscope was withdrawn including a retroflexed examination of the proximal stomach; Findings and interventions are described below. Findings: Larynx:normal Esophagus: GE junction at 44 cm, diaphragm hiatus at 44 cm, mild esophagitis at GEJ, bx taken from here and distal esophagus -the GEJ was patulous Stomach: mild erythema . Biopsies were obtained. Grade 2 flap valve on retroflexed examination of the cardia. Duodenum: Normal bulb and descending duodenum, bx taken Intervention: Biopsies as noted above, Impression/Findings: gastritis esophagitis patulous GEJ PLAN: GERD precautions await bx results
[2023-08-14 11:59] VITALS: BP 121/72; PULSE 65; RESP 14; TEMP 36.2; O2SAT 97
[2023-08-14 12:14] VITALS: BP 128/78; PULSE 68; RESP 16; O2SAT 99
[2023-08-14 12:29] VITALS: BP 125/81; PULSE 61; RESP 18; TEMP 36.2; O2SAT 99
== END 2023-08-14 13:14 | disposition home or self-care (01) ==
PROVIDERS: PCP Family Medicine; Visit Provider Internal Medicine Gastroenterology
PROC: 0DJ08ZZ Inspection of Upper Intestinal Tract, Via Natural or Artificial Opening Endoscopic (ICD-10-PCS; CPT 43235; principal; 2023-08-14 13:50)
DX: K90.0 Celiac disease (principal); Q39.8 Other congenital malformations of esophagus; K20.80 Other esophagitis without bleeding; K29.50 Unspecified chronic gastritis without bleeding; K22.89 Other specified disease of esophagus; K44.9 Diaphragmatic hernia without obstruction or gangrene; J45.909 Unspecified asthma, uncomplicated; Z88.1 Allergy status to other antibiotic agents
CPT/HCPCS: 43239; 88305; 88313; 88342; J1596; J2250; J2704

== ENCOUNTER → 2023-08-14 10:32 | Outpatient (BNV) | payer OTHER, SELFPAY | PROVIDERS: PCP Family Medicine; Visit Provider Internal Medicine Gastroenterology | DX: K29.70 Gastritis, unspecified, without bleeding (principal); K20.90 Esophagitis, unspecified without bleeding; K22.89 Other specified disease of esophagus | CPT/HCPCS: 43239 ==

== ENCOUNTER 2023-08-16 15:31 | Outpatient (REF) | payer OTHER, SELFPAY ==
[2023-08-20 13:09] LABS: Gliadin Deamidated IgA Ab <1.0 U/mL; Gliadin Deamidated IgG Ab 6.9 U/mL; Transglutaminase IgA 14.4 U/mL
== END 2023-08-16 15:32 | disposition home or self-care (01) ==
LOC: HO.LAB 15:31
PROVIDERS: Visit Provider Internal Medicine Gastroenterology
DX: R10.33 Periumbilical pain (principal); G89.29 Other chronic pain; K90.0 Celiac disease; R19.7 Diarrhea, unspecified
CPT/HCPCS: 36415; 86258; 86364

== ENCOUNTER 2023-08-29 08:21 | Outpatient (AMB) | payer OTHER, SELFPAY ==
--- NOTE | 2023-08-29 08:25 | MHC.OFFVIS ---
Intake Vital Signs 08/29/23 08:38 Height 6 ft 2 in Weight 215 lb BMI 27.6 BP 121/65 Blood Pressure Location Lt brachial Position Sitting Pulse 67 Intake Visit Reasons: S/p egd Intake Note: Patient follow up for EGD results. Patient cc: acid reflex on and off, and some diarrhea on and of. Radiologic Electronic Specialist Required: No Accompanied by: Self / Same As Patient Allergies amoxicillin Adverse Reaction (Verified 08/29/23 08:37) Hives HPI S/p egd HPI Details Onsert this year with a change in his stools with looser stools and abd discomfort. He saw his PCP and he was sent for an US at [facility] to r/o GB diaseae (father and grandfather had choles) - but US was negative. His ususla BM was formed and daily. He can not ID any medication change, diet change, illness, etc prior to this. He has a lot borborygmus and crampy discomfort. He is unsure if he has had blood or mucus in his stools. He will move his bowels anywhere from several times day to once a day and I will think I am getting better. 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 He can not ID any pattern of foods that set it off. He has not tried any OTC treatments. No known FHX of similar sx or IBD, food allergies etc. Will get GI panel, repeat lipase (was high), ROV 3 weeks. . Assessment & Plan (1) Diarrhea: Code(s): R19.7 - Diarrhea, unspecified (2) Elevated lipase: Code(s): R74.8 - Abnormal levels of other serum enzymes Orders: Orders GI Panel 04/03/23 R19.7 - Diarrhea, unspecified Transglutaminase I gA 04/03/23 R19.7 - Diarrhea, unspecified Transglutaminase A b IgG 04/03/23 R19.7 - Diarrhea, unspecified Lipase 04/03/23 R74.8 - Abnormal l evels of other ser um enzymes C Reactive Protein 04/03/23 R1.7 - Diarrhea, unspecified Calprotectin, Feca l 04/03/23 R19.7 - Diarrhea, unspecified CDiff Gene PCR 04/03/23 R1.7 - Diarrhea, unspecified Rast Allergen 04/03/23 R19.7 - Diarrhea, unspecified TSH reflex Free T4 04/03/23 R19.7 - Diarrhea, unspecified Pancreatic Elastas e-1 04/03/23 R19.7 - Diarrhea, unspecified Amylase 04/03/23 R74.8 - Abnormal l evels of other ser um enzymes LABS: Laboratory Tests 04/16/23 04/16/23 04/16/23 10:40 10:40 11:49 C-Reactive Protein < 0.10 Amylase 59 Lipase Stool Calprotectin 12 Stool Pancreat Meka stase >500 Tiss Transglutamin IgG Tiss Transglutamin IgA Anti-Gliadin IgG A b Gliadin (Deamidat) IgA C. difficile Tox B Gene NEGATIVE 04/16/23 04/16/23 08/16/23 11:49 11:49 15:44 C-Reactive Protein Amylase Lipase 43 Stool Calprotectin Stool Pancreat Meka stase Tiss Transglutamin IgG 6.5 1.0 Tiss Transglutamin IgA 77.6 H Anti-Gliadin IgG A b Gliadin (Deamidat) IgA C. difficile Tox B Gene 08/16/23 08/16/23 15:44 15:44 C-Reactive Protein Amylase Lipase Stool Calprotectin Stool Pancreat Meka stase Tiss Transglutamin IgG Tiss Transglutamin IgA 14.4 Anti-Gliadin IgG A b 6.9 Gliadin (Deamidat) IgA <1.0 C. difficile Tox B Gene 06/16/22-[address]: ORDERED: GI Panel Test Result Flag Refere nce Campylobacter No t Detected Not Det ect. P. shigell oides Not Detected No t Detect. Salmo ben Not Detect ed Not Detect. Vibrio Not D etected Not Detect . Vibrio Choler ae Not Detected Not D etect. Y. enter ocolit. Not Detected Not Detect. E. coli EAEC Not Dete cted Not Detect. E. coli EPEC Not Detected Not Dete ct. E. coli ETE C Not Detected Not Detect. E. col i STEC Not Detecte d Not Detect. E . coli O157 Not henna licable Not Detect. E. coli c ontaining the O157 antigen are a sub set of Shig a-like toxin-produ cing E. coli (STEC ). Shigella/EIEC Not Detected Not D etect. Cryptosp oridium Not Detected Not Detect. Cyc lospora Not Dete cted Not Detect. E. histolytica Not Detected Not Dete ct. Giardia hall blia Not Detected Not Detect. Adenov irus Not Detecte d Not Detect. A strovirus Not De tected Not Detect. Norovirus N ot Detected Not De tect. Rotavirus A Not Detected N ot Detect. Cong virus Not Detec andre Not Detect. The RAST panel showed no other major food allergies EGD/COLONOSCOPY Findings: Larynx:normal Esophagus: GE junction at 44 cm, diaphragm hiatus at 44 cm, mild esophagitis at GEJ, bx taken from here and distal esophagus -the GEJ was patulous Stomach: mild erythema . Biopsies were obtained. Grade 2 flap valve on retroflexed examination of the cardia. Duodenum: Normal bulb and descending duodenum, bx taken Received: 08/14/23 ADDENDUM REPORT Addendum Addendum #1 Part A is reviewed - intraepithelial lymphocytes number up to 20 per 100 enterocytes. Diagnostic features of celiac disease are not seen. Nevertheless, correlation with patient's clinical presentation and other laboratory findings is recommended. Electronically Signed By: Jerry Mcfadden MD 08/19/23 [id number] Diagnosis A. Duodenum, biopsy: Chronic inactive duodenitis. B. Stomach, biopsy: Antral-type and oxyntic mucosa with mild chronic inactive inflammation; no Helicobacter organisms seen. C. GE junction, biopsy: - Cardiofundic-type mucosa with moderate chronic inactive inflammation; no intestinal metaplasia seen. - No squamous epithelium present. D. Esophagus, distal, biopsy: Squamous epithelium within normal limits; no inflammation seen. 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 He would like to have definitive answers. I explained to him that this what clinical medicine is all about, the tests do not always give us a full picture of what is going on they only provide clues. The definitive answer will be what happens if he avoids gluten. He did not avoid gluten prior to the endoscopy because he wanted the biopsy not to be impacted. Explained to him that is test variations can happen because of differences in the onset of the allergy and the strength of how the body is reacting. He admits that he did stop gluten for a couple of weeks and was surprised that he had his 1st solid formed stool in over a year! I think this is the prove in the putting. We agree that he will continue to avoid gluten and will evaluate how he is doing in 8 weeks. At that time if he feels he does not have sufficient control we can consider adding some sort of irritable bowel drug as well. [facility] Surgical History No pertinent past surgical history Social History Household Members: None Alcohol intake: current Alcohol intake frequency: holidays/special occasions only Patient Tobacco Use Status: Never used Tobacco Review of Systems Const Denies fatigue, Denies fever(s), Denies night sweats, Denies poor appetite and Denies weight loss Eyes Details: glasses Reports requires corrective lenses ENT Reports Normal hearing present, Denies dental pain, Denies dysphagia, Denies hearing loss, Denies mouth pain, Denies odynophagia, Denies throat swelling, Denies tongue swelling and Reports other (Dentition adequate) Card Reports no additional complaints Resp Reports no additional complaints GI Details: Reports abdominal pain, Denies melena, Reports bloating, Denies hematochezia, Denies constipation, Denies GI cramping, Denies dysphagia, Denies excessive flatus, Denies early satiety, Denies heartburn, Reports diarrhea, Denies nausea, Denies odynophagia, Denies vomiting and Denies hematemesis Skin/Breast Denies pruritus, Denies lesions, Denies rash and Denies jaundice Neuro Reports Normal hearing present and Denies Abnormal speech present Endo Denies fatigue Aller/Immun Denies throat swelling and Denies tongue swelling Physical Exam Vital Signs: Last Vital Signs Pulse 67 08/29/23 08:38 BP 121/65 08/29/23 08:38 BMI result Body Mass Index 27.6 Const General: cooperative, no acute distress, well developed and well groomed Nutritional Appearance: average body habitus and well nourished Orientation/consciousness: oriented to person, oriented to place and oriented to time Limitations: No language barrier HEENT Head: Yes normocephalic and Yes atraumatic Eyes General: appearance normal, both eyes and all related structures Pupils: Equal, round and reactive pupils present Neck Neck: Yes normal visual inspection Thyroid: Thyroid normal Resp Effort & Inspection: normal respiratory effort and able to speak in complete sentences Cardio Peripheral pulses: radial pulses present and posterior tibial pulses present GI Auscultation: normal bowel sounds Skin General skin exam: no rashes or lesions noted, turgor normal, skin not dry, no jaundice, No spider nevi and no striae Rashes: no rashes Nails: normal Neuro General: oriented to person, oriented to place and oriented to time Cranial nerves: Yes Equal, round and reactive pupils present and Yes Normal hearing present Speech: No Abnormal speech present Psych Appearance: grossly normal and well kempt Mental Status: mental status grossly normal Speech and movement: Normal speech and movement present Affect: normal affect Attitude: cooperative Thought process: Normal thought process present and not confabulating Thought content: Normal thought content present Insight: Fair insight present (Psych) Judgement: Fair judgement present (Psych) Results Reviewed Results Reviewed: Laboratory Tests 04/16/23 04/16/23 04/16/23 10:40 10:40 11:49 C-Reactive Protein < 0.10 Amylase 59 Lipase Stool Calprotectin 12 Stool Pancreat Elastase >500 Tiss Transglutamin IgG Tiss Transglutamin IgA Anti-Gliadin IgG Ab Gliadin (Deamidat) IgA C. difficile Tox B Gene NEGATIVE 04/16/23 04/16/23 08/16/23 11:49 11:49 15:44 C-Reactive Protein Amylase Lipase 43 Stool Calprotectin Stool Pancreat Elastase Tiss Transglutamin IgG 6.5 1.0 Tiss Transglutamin IgA 77.6 H Anti-Gliadin IgG Ab Gliadin (Deamidat) IgA C. difficile Tox B Gene 08/16/23 08/16/23 15:44 15:44 C-Reactive Protein Amylase Lipase Stool Calprotectin Stool Pancreat Elastase Tiss Transglutamin IgG Tiss Transglutamin IgA 14.4 Anti-Gliadin IgG Ab 6.9 Gliadin (Deamidat) IgA <1.0 C. difficile Tox B Gene 06/16/22-[address] [facility] [address]: ORDERED: GI Panel Test Result Flag Reference Campylobacter Not Detected Not Detect. P. shigelloides Not Detected Not Detect. Salmonella Not Detected Not Detect. Vibrio Not Detected Not Detect. Vibrio Cholerae Not Detected Not Detect. Y. enterocolit. Not Detected Not Detect. E. coli EAEC Not Detected Not Detect. E. coli EPEC Not Detected Not Detect. E. coli ETEC Not Detected Not Detect. E. coli STEC Not Detected Not Detect. E. coli O157 Not applicable Not Detect. E. coli containing the O157 antigen are a subset of Shiga-like toxin-producing E. coli (STEC). Shigella/EIEC Not Detected Not Detect. Cryptosporidium Not Detected Not Detect. Cyclospora Not Detected Not Detect. E. histolytica Not Detected Not Detect. Giardia lamblia Not Detected Not Detect. Adenovirus Not Detected Not Detect. Astrovirus Not Detected Not Detect. Norovirus Not Detected Not Detect. Rotavirus A Not Detected Not Detect. Sapovirus Not Detected Not Detect. The RAST panel showed no other major food allergies EGD/COLONOSCOPY Findings: Larynx:normal Esophagus: GE junction at 44 cm, diaphragm hiatus at 44 cm, mild esophagitis at GEJ, bx taken from here and distal esophagus -the GEJ was patulous Stomach: mild erythema . Biopsies were obtained. Grade 2 flap valve on retroflexed examination of the cardia. Duodenum: Normal bulb and descending duodenum, bx taken Received: 08/14/23 ADDENDUM REPORT Addendum Addendum #1 Part A is reviewed - intraepithelial lymphocytes number up to 20 per 100 enterocytes. Diagnostic features of celiac disease are not seen. Nevertheless, correlation with patient's clinical presentation and other laboratory findings is recommended. Electronically Signed By: Jerry Mcfadden MD 08/19/23 [id number] Diagnosis A. Duodenum, biopsy: Chronic inactive duodenitis. B. Stomach, biopsy: Antral-type and oxyntic mucosa with mild chronic inactive inflammation; no Helicobacter organisms seen. C. GE junction, biopsy: - Cardiofundic-type mucosa with moderate chronic inactive inflammation; no intestinal metaplasia seen. - No squamous epithelium present. D. Esophagus, distal, biopsy: Squamous epithelium within normal limits; no inflammation seen. 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 He would like to have definitive answers. I explained to him that this what clinical medicine is all about, the tests do not always give us a full picture of what is going on they only provide clues. The definitive answer will be what happens if he avoids gluten. He did not avoid gluten prior to the endoscopy because he wanted the biopsy not to be impacted. Explained to him that is test variations can happen because of differences in the onset of the allergy and the strength of how the body is reacting. He admits that he did stop gluten for a couple of weeks and was surprised that he had his 1st solid formed stool in over a year! I think this is the proof in the pudding. Interestingly, he says that his brother has always struggled with skin rashes an allergies and has been on medication for years. There is also an elevated tTG a his brother who is going to be trying to avoid gluten. We agree that he will continue to avoid gluten and will evaluate how he is doing in 8 weeks. At that time if he feels he does not have sufficient control we can consider adding some sort of irritable bowel drug as well. Coding Level of Care Code Est Pt Level 4 (51553) Diagnoses Celiac disease K90.0 Diarrhea R19.7 Elevated lipase R74.8 Time Spent (min) 33
[2023-08-29 08:38] VITALS: BP 121/65; PULSE 67; BMI 27.6
== END 2023-08-29 09:16 | disposition home or self-care (01) ==
PROVIDERS: PCP Family Medicine; Visit Provider Nurse Practitioner
DX: K90.0 Celiac disease (principal); R19.7 Diarrhea, unspecified; R74.8 Abnormal levels of other serum enzymes
CPT/HCPCS: 99214

== ENCOUNTER → 2023-08-29 08:21 | Outpatient (BNVA) | payer OTHER, SELFPAY | PROVIDERS: PCP Family Medicine; Visit Provider Nurse Practitioner ==

== ENCOUNTER 2023-10-24 08:28 | Outpatient (AMB) | payer OTHER, SELFPAY ==
--- NOTE | 2023-10-24 08:33 | A.OFFVIS_ITS ---
Vital Signs 10/24/23 08:34 Height 6 ft 2 in Weight 225 lb 4.999 oz BMI 28.9 BP 139/75 Blood Pressure Location Rt brachial Position Sitting Pulse 74 Intake Visit Reasons: 8 week f/u ? Celiac Intake Note: Patient here for f/u ? Celiac. Patient c/o: acid reflux, diarrhea, some abd discomfort. Not taking any meds. Electronic Data Interchange Specialist Required: No Accompanied by: Self / Same As Patient Allergies amoxicillin Adverse Reaction (Verified 08/29/23 08:37) Hives HPI HPI 8 week f/u ? 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 He would like to have definitive answers. I explained to him that this what clinical medicine is all about, the tests do not always give us a full picture of what is going on they only provide clues. The definitive answer will be what happens if he avoids gluten. He did not avoid gluten prior to the endoscopy because he wanted the biopsy not to be impacted. Explained to him that is test variations can happen because of differences in the onset of the allergy and the strength of how the body is reacting. He admits that he did stop gluten for a couple of weeks and was surprised that he had his 1st solid formed stool in over a year! I think this is the proof in the pudding. Interestingly, he says that his brother has always struggled with skin rashes an allergies and has been on medication for years. There is also an elevated tTG a his brother who is going to be trying to avoid gluten. We agree that he will continue to avoid gluten and will evaluate how he is doing in 8 weeks. At that time if he feels he does not have sufficient control we can consider adding some sort of irritable bowel drug as well. TODAY'S VISIT He admits he is having difficulty avoiding gluten and he is uncertain how much this has caused him to have some relapse of symptoms. He is become quite aware that many people were not well educated about gluten including restaurants and there is a lot of hidden gluten in foods. It is also possible that he has IBS on top of celiac disease. Difficult to know until we can isolate the variables and he wants to continue to work with his di et before we make any big decisions. At this point I think will get a repeat of the tissue transglutaminase is to see how much hidden gluten he may being countering and this may help us make a decision on what is driving his symptoms. He has also had a severe increase in heartburn which is not been a big problem before. Because of this I will get a barium swallow to further investigate this. We will also give him some famotidine to use p.r.n. for when the symptoms are bad. He also had an elevated lipase in the past so I think will recheck this to see if this has any bearing on his symptoms. Return office visit in 5 weeks [facility] Surgical History No pertinent past surgical history Social History Household Members: None Alcohol intake: current Alcohol intake frequency: holidays/special occasions only Patient Tobacco Use Status: Never used Tobacco Review of Systems Const Denies fatigue, Denies fever(s), Denies night sweats, Denies poor appetite and Denies weight loss ENT Reports Normal hearing present, Denies dental pain, Denies dysphagia, Denies hearing loss, Denies mouth pain, Denies odynophagia, Denies throat swelling, Denies tongue swelling and Reports other (Dentition adequate) Card Reports no additional complaints Resp Reports no additional complaints GI Details: Denies abdominal pain, Denies melena, Denies bloating, Denies hematochezia, Denies constipation, Denies GI cramping, Denies dysphagia, Denies excessive flatus, Denies early satiety, Reports dyspepsia, Reports heartburn, Denies diarrhea, Reports loose stools, Denies nausea, Denies odynophagia, Denies vomiting and Denies hematemesis Skin/Breast Denies pruritus, Denies lesions, Denies rash and Denies jaundice Neuro Reports Normal hearing present and Denies Abnormal speech present Endo Denies fatigue Aller/Immun Denies throat swelling and Denies tongue swelling Physical Exam Vital Signs: Last Vital Signs Pulse 74 10/24/23 08:34 BP 139/75 10/24/23 08:34 BMI result Body Mass Index 28.9 Const General: cooperative, no acute distress, well developed and well groomed Nutritional Appearance: average body habitus and well nourished Orientation/consciousness: oriented to person, oriented to place and oriented to time Limitations: No language barrier HEENT Head: Yes normocephalic and Yes atraumatic Eyes General: appearance normal, both eyes and all related structures Pupils: Equal, round and reactive pupils present Neck Neck: Yes normal visual inspection Thyroid: Thyroid normal Resp Effort & Inspection: normal respiratory effort and able to speak in complete sentences Auscultation: clear to auscultation bilaterally Cardio Rate: regular rate Rhythm: regular rhythm Heart sounds: Normal, physiologic split S2 sound present Peripheral pulses: radial pulses present and posterior tibial pulses present GI Inspection: No distended and No Abdominal panniculus present Palpation (GI): Soft to palpation, nontender, no guarding, not rigid and No hepatosplenomegaly present Percussion: Yes normal to percussion Auscultation: normal bowel sounds Rectal Exam - Male: Yes deferred Skin General skin exam: no rashes or lesions noted, turgor normal, skin not dry, no jaundice, No spider nevi and no striae Rashes: no rashes Nails: normal Neuro General: oriented to person, oriented to place and oriented to time Cranial nerves: Yes Equal, round and reactive pupils present and Yes Normal hearing present Speech: No Abnormal speech present Extrem General: Yes normal to inspection, No clubbing, No cyanosis and No edema Psych Appearance: grossly normal and well kempt Mental Status: mental status grossly normal Speech and movement: Normal speech and movement present Affect: normal affect Attitude: cooperative Thought process: Normal thought process present and not confabulating Thought content: Normal thought content present Insight: Fair insight present (Psych) Judgement: Fair judgement present (Psych) Assessment & Plan Assessment & Plan (1) Celiac disease: Code(s): K90.0 - Celiac disease Category: Medical (2) GERD (gastroesophageal reflux disease): Code(s): K21.9 - Gastro-esophageal reflux disease without esophagitis Category: Medical (3) Elevated lipase: Comment: Seems to have normalized on repeat testing Code(s): R74.8 - Abnormal levels of other serum enzymes Category: Medical (4) Diarrhea: Code(s): R19.7 - Diarrhea, unspecified Category: Medical Plan He admits he is having difficulty avoiding gluten and he is uncertain how much this has caused him to have some relapse of symptoms. He is become quite aware that many people were not well educated about gluten including restaurants and there is a lot of hidden gluten in foods. It is also possible that he has IBS on top of celiac disease. Difficult to know until we can isolate the variables and he wants to continue to work with his diet before we make any big decisions. At this point I think will get a repeat of the tissue transglutaminase is to see how much hidden gluten he may being countering and this may help us make a decision on what is driving his symptoms. He has also had a severe increase in heartburn which is not been a big problem before. Because of this I will get a barium swallow to further investigate this. We will also give him some famotidine to use p.r.n. for when the symptoms are bad. He also had an elevated lipase in the past so I think will recheck this to see if this has any bearing on his symptoms. Return office visit in 5 weeks Orders: Orders Lipase Today K21.9 - Gastro-esophageal reflux disease without esophagitis, K90.0 - Celiac disease, R19.7 - Diarrhea, unspecified, R74.8 - Abnormal levels of other serum enzymes Transglutaminase Ab IgG Today K21.9 - Gastro-esophageal reflux disease without esophagitis, K90.0 - Celiac disease, R19.7 - Diarrhea, unspecified, R74.8 - Abnormal levels of other serum enzymes Transglutaminase IgA Today K21.9 - Gastro-esophageal reflux disease without esophagitis, K90.0 - Celiac disease, R19.7 - Diarrhea, unspecified, R74.8 - Abnormal levels of other serum enzymes FL upper GI small bowel Today K21.9 - Gastro-esophageal reflux disease without esophagitis, K90.0 - Celiac disease, R19.7 - Diarrhea, unspecified, R74.8 - Abnormal levels of other serum enzymes Medications: New famotidine (Pepcid) 40 mg PO BEDTIME 30 tabs 6RF K21.9 - Gastro-esophageal reflux disease without esophagitis, K90.0 - Celiac disease Coding Level of Care Code Est Pt Level 3 (81967) Diagnoses Celiac disease K90.0 GERD (gastroesophageal reflux disease) K21.9 Elevated lipase R74.8 Diarrhea R19.7
[2023-10-24 08:34] VITALS: BP 139/75; PULSE 74; BMI 28.9
== END 2023-10-24 08:55 | disposition home or self-care (01) ==
PROVIDERS: PCP Family Medicine; Visit Provider Nurse Practitioner
DX: K90.0 Celiac disease (principal); K21.9 Gastro-esophageal reflux disease without esophagitis; R74.8 Abnormal levels of other serum enzymes; R19.7 Diarrhea, unspecified
CPT/HCPCS: 99213

== ENCOUNTER → 2023-10-24 08:28 | Outpatient (BNVA) | payer OTHER, SELFPAY | PROVIDERS: PCP Family Medicine; Visit Provider Nurse Practitioner ==

== ENCOUNTER 2023-10-31 13:49 | Outpatient (REF) | payer OTHER, SELFPAY ==
[2023-10-31 15:32] LABS: Lipase 53 U/L (8-78)
[2023-11-05 20:23] LABS: Transglutaminase Ab IgG <1.0 U/mL; Transglutaminase IgA 8.1 U/mL
== END 2023-10-31 13:50 | disposition home or self-care (01) ==
LOC: HO.LAB 13:49
PROVIDERS: Visit Provider Nurse Practitioner
DX: K90.0 Celiac disease (principal); K21.9 Gastro-esophageal reflux disease without esophagitis; R74.8 Abnormal levels of other serum enzymes; R19.7 Diarrhea, unspecified
CPT/HCPCS: 36415; 83690; 86364

== ENCOUNTER 2023-11-21 09:42 | Outpatient (AMB) | payer OTHER, SELFPAY ==
[2023-11-21 09:47] VITALS: BP 119/66; PULSE 80; BMI 28.3
--- NOTE | 2023-11-21 09:47 | MHC.OFFVIS ---
Vital Signs 11/21/23 09:47 Height 6 ft 2 in Weight 220 lb 7.396 oz BMI 28.3 BP 119/66 Blood Pressure Location Lt brachial Position Sitting Pulse 80 Intake Visit Reasons: 1 month follow up Intake Note: Lane returns to in office 1 month follow up of celiac disease and labs. CC: Patient upper GI study scheduled for 12/25. Patient states that he continues to have diarrhea and abd discomfort. He states medication has been helpful. 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 Accompanied by: Self / Same As Patient Allergies amoxicillin Adverse Reaction (Verified 11/21/23 09:49) Hives HPI HPI 1 month follow up: Details: Assessment & Plan (1) Celiac disease: Code(s): K90.0 - Celiac disease Category: Medical (2) GERD (gastroesophageal reflux disease): Code(s): K21.9 - Gastro-esophageal reflux disease without esophagitis Category: Medical (3) Elevated lipase: Comment: Seems to have normalized on repeat testing Code(s): R74.8 - Abnormal levels of other serum enzymes Category: Medical (4) Diarrhea: Code(s): R19.7 - Diarrhea, unspecified Category: Medical Plan He admits he is having difficulty avoiding gluten and he is uncertain how much this has caused him to have some relapse of symptoms. He is become quite aware that many people were not well educated about gluten including restaurants and there is a lot of hidden gluten in foods. It is also possible that he has IBS on top of celiac disease. Difficult to know until we can isolate the variables and he wants to continue to work with his diet before we make any big decisions. At this point I think will get a repeat of the tissue transglutaminase is to see how much hidden gluten he may being countering and this may help us make a decision on what is driving his symptoms. He has also had a severe increase in heartburn which is not been a big problem before. Because of this I will get a barium swallow to further investigate this. We will also give him some famotidine to use p.r.n. for when the symptoms are bad. He also had an elevated lipase in the past so I think will recheck this to see if this has any bearing on his symptoms. Return office visit in 5 weeks Orders: Orders Lipase Today K21.9 - Gastro-esophageal reflux disease without esophagitis, K90.0 - Celiac disease, R19.7 - Diarrhea, unspecified, R74.8 - Abnormal levels of other serum enzymes Transglutaminase Ab IgG Today K21.9 - Gastro-esophageal reflux disease without esophagitis, K90.0 - Celiac disease, R19.7 - Diarrhea, unspecified, R74.8 - Abnormal levels of other serum enzymes Transglutaminase IgA Today K21.9 - Gastro-esophageal reflux disease without esophagitis, K90.0 - Celiac disease, R19.7 - Diarrhea, unspecified, R74.8 - Abnormal levels of other serum enzymes FL upper GI small bowel Today K21.9 - Gastro-esophageal reflux disease without esophagitis, K90.0 - Celiac disease, R19.7 - Diarrhea, unspecified, R74.8 - Abnormal levels of other serum enzymes Medications: New famotidine (Pepcid) 40 mg PO BEDTIME 30 tabs 6RF K21.9 - Gastro-esophageal reflux disease without esophagitis, K90.0 - Celiac disease LABS: Laboratory Tests 10/31/23 14:03 Lipase 53 Tiss Transglutamin IgG <1.0 Tiss Transglutamin IgA 8.1 UPPER GI WITH SMALL-BOWEL FOLLOW-THROUGH Scheduled for 12/26/2023 TODAY'S VISIT He was doing better for a while and had some formed stools, but then 3 days ago he started feeling poorly with an upset stomach and diarrhea again. To his knowledge he has been good about avoiding gluten so he is uncertain what is driving this. It distresses him that his stooling tends to be pale yellow colored or sometimes looks like ?black beans mixed with carrots. ? He is concerned that something is wrong MS worries him. We did upper endoscopy and there certainly was no signs of bleeding higher up in the stomach. We certainly could do it colonoscopy determine if there is anything like microscopic colitis contributing to his ongoing symptoms. When his symptoms are bad he has worsening heartburn and although the famotidine controls it well he did have 1 episode where he did not have access to the famotidine and he suffered during the day. 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 He does have an upcoming upper GI study which was ordered to try to investigate the ongoing heartburn issues. After discussion he decides that he will have a colonoscopy ordered and if we decide there is some other pathology we can always cancel it. There are no prior problems with anesthesia or sedation. There are no cardiac or respiratory problems to consider. There are no infectious disease problems. I will see him after his December 25 upper GI study and at that time will evaluate the Carafate. [facility] Surgical History No pertinent past surgical history Family History (Updated 11/21/23 @ 09:52 by LOKESH Holland) Maternal Grandmother Cancer Social History Household Members: None Alcohol intake: current Alcohol intake frequency: holidays/special occasions only Patient Tobacco Use Status: Never used Tobacco Review of Systems Const Denies fatigue, Denies fever(s), Denies night sweats, Denies poor appetite and Denies weight loss Eyes Details: glasses Reports requires corrective lenses ENT Reports Normal hearing present, Denies dental pain, Denies dysphagia, Denies hearing loss, Denies mouth pain, Denies odynophagia, Denies throat swelling, Denies tongue swelling and Reports other (Dentition adequate) Card Reports no additional complaints Resp Reports no additional complaints GI Details: Denies abdominal pain, Denies melena, Denies bloating, Denies hematochezia, Denies constipation, Denies GI cramping, Denies dysphagia, Denies excessive flatus, Denies early satiety, Reports heartburn, Denies diarrhea, Reports loose stools, Reports nausea, Denies odynophagia, Denies vomiting and Denies hematemesis Skin/Breast Denies pruritus, Denies lesions, Denies rash and Denies jaundice Neuro Reports Normal hearing present and Denies Abnormal speech present Endo Denies fatigue Aller/Immun Denies throat swelling and Denies tongue swelling Physical Exam Vital Signs: Last Vital Signs Pulse 80 11/21/23 09:47 BP 119/66 11/21/23 09:47 BMI result Body Mass Index 28.3 Const General: cooperative, no acute distress, well developed and well groomed Nutritional Appearance: average body habitus and well nourished Orientation/consciousness: oriented to person, oriented to place and oriented to time Limitations: No language barrier HEENT Head: Yes normocephalic and Yes atraumatic Eyes General: appearance normal, both eyes and all related structures Pupils: Equal, round and reactive pupils present Neck Neck: Yes normal visual inspection Resp Effort & Inspection: normal respiratory effort and able to speak in complete sentences Skin General skin exam: no rashes or lesions noted, turgor normal, skin not dry, no jaundice, No spider nevi and no striae Rashes: no rashes Nails: normal Neuro General: oriented to person, oriented to place and oriented to time Cranial nerves: Yes Equal, round and reactive pupils present and Yes Normal hearing present Speech: No Abnormal speech present Extrem General: Yes normal to inspection, No clubbing, No cyanosis and No edema Psych Appearance: grossly normal and well kempt Mental Status: mental status grossly normal Speech and movement: Normal speech and movement present Affect: normal affect Attitude: cooperative Thought process: Normal thought process present and not confabulating Thought content: Normal thought content present Insight: Fair insight present (Psych) Judgement: Fair judgement present (Psych) Assessment & Plan Assessment & Plan (1) Celiac disease: Code(s): K90.0 - Celiac disease Category: Medical (2) GERD (gastroesophageal reflux disease): Code(s): K21.9 - Gastro-esophageal reflux disease without esophagitis Category: Medical (3) Elevated lipase: Comment: Seems to have normalized on repeat testing Code(s): R74.8 - Abnormal levels of other serum enzymes Category: Medical (4) Diarrhea: Code(s): R19.7 - Diarrhea, unspecified Category: Medical (5) Pre-op examination: Code(s): Z01.818 - Encounter for other preprocedural examination Category: Medical Plan He was doing better for a while and had some formed stools, but then 3 days ago he started feeling poorly with an upset stomach and diarrhea again. To his knowledge he has been good about avoiding gluten so he is uncertain what is driving this. It distresses him that his stooling tends to be pale yellow colored or sometimes looks like ?black beans mixed with carrots. ? He is concerned that something is wrong MS worries him. We did upper endoscopy and there certainly was no signs of bleeding higher up in the stomach. We certainly could do it colonoscopy determine if there is anything like microscopic colitis contributing to his ongoing symptoms. When his symptoms are bad he has worsening heartburn and although the famotidine controls it well he did have 1 episode where he did not have access to the famotidine and he suffered during the day. 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 He does have an upcoming upper GI study which was ordered to try to investigate the ongoing heartburn issues. After discussion he decides that he will have a colonoscopy ordered and if we decide there is some other pathology we can always cancel it. There are no prior problems with anesthesia or sedation. There are no cardiac or respiratory problems to consider. There are no infectious disease problems. I will see him after his December 25 upper GI study and at that time will evaluate the Carafate. Orders: Orders FITS Today R19.7 - Diarrhea, unspecified Colonoscopy - GI Use Only Today R19.7 - Diarrhea, unspecified Medications: New sodium,potassium,mag sulfates 17.5-3.13-1.6 gram (Suprep Bowel Prep Kit) 480 mL orally; FOR COLONOSCOPY PREP 354 mL 0RF sucralfate (Carafate) 1 g PO DAILY 30 tabs 6RF Coding Level of Care Code Est Pt Level 4 (83800) Diagnoses Celiac disease K90.0 GERD (gastroesophageal reflux disease) K21.9 Elevated lipase R74.8 Diarrhea R19.7 Pre-op examination Z01.818
== END 2023-11-21 10:24 | disposition home or self-care (01) ==
PROVIDERS: PCP Family Medicine; Visit Provider Nurse Practitioner
DX: K90.0 Celiac disease (principal); K21.9 Gastro-esophageal reflux disease without esophagitis; R74.8 Abnormal levels of other serum enzymes; R19.7 Diarrhea, unspecified; Z01.818 Encounter for other preprocedural examination
CPT/HCPCS: 99214

== ENCOUNTER → 2023-11-21 09:42 | Outpatient (BNVA) | payer OTHER, SELFPAY | PROVIDERS: PCP Family Medicine; Visit Provider Nurse Practitioner ==

== ENCOUNTER 2024-02-24 07:51 | Outpatient (REF) | payer OTHER, SELFPAY ==
--- NOTE | ~2024-02-24 | FL_ITS ---
EXAMINATION: XR UPPER GI SERIES WITH SMALL BOWEL CLINICAL INFORMATION: Diarrhea. Concern for celiac disease. COMPARISON: None TECHNIQUE: Fluoroscopic air contrast upper GI examination was performed utilizing standard techniques with thin and thick barium and effervescent granules. Numerous spot images were obtained. This was followed by small bowel series using standard overhead CR techniques, with fluoroscopic spot imaging of the terminal ileum. FINDINGS: UPPER GI SERIES Dual and single contrast images of the esophagus demonstrate normal caliber, contour, and mucosal pattern. No evidence of stricture, mass, or ulcerations identified. Esophageal peristalsis is mildly disorganized. No evidence of hiatus hernia identified. No significant gastroesophageal reflux was seen during the course of the examination and on reflux views. Dual contrast and single contrast images of the stomach demonstrated a normal contour. The gastric rugal folds have a mildly thickened appearance suggestive of mild gastritis. No masses or ulcerations are seen. Contrast freely passed into the gastric antrum and duodenal bulb without delay. Single and air-contrast images of the duodenal bulb demonstrate no abnormality. The duodenal sweep has a normal appearance, course, and mucosal fold appearance. SMALL BOWEL SERIES: [employer] Lieutenant view demonstrates normal bowel gas pattern. No organomegaly. No abnormal calcifications. Bone island noted in the right femoral neck. No additional bony abnormality. The imaged small bowel demonstrates thickened folds of the proximal jejunum, as well as thickened and mild jejunalization of folds in the ileum and terminal ileum. There is also mild dilution of contrast as it progresses to the right colon. Findings are consistent with a diagnosis of celiac disease. Contrast opacifies the right colon after 60 minutes. FLUOROSCOPY TIME: 4 minutes 1 second Number of Spot Images: 11 Number of Cine: 11 DOSE AREA PRODUCT: 3665 uGy-m2 (microgray-meter squared) FL/FL upper GI small bowel IMPRESSION: 1. Mildly disorganized esophageal peristalsis. 2. Mildly thickened appearance of the gastric rugal folds, suggestive of mild gastritis. 3. Small bowel series showing findings highly suggestive of celiac disease. Contrast reaches the right colon in 60 minutes. This procedure was performed by Varinder Uribe PA-C, and supervised by Dr. Fernandez Electronically signed by: Esequiel Fernandez MD 02/25/2024 05:05 PM EDT Workstation: [id number]
== END 2024-02-24 07:52 | disposition home or self-care (01) ==
LOC: HO.XRAY 07:51
PROVIDERS: PCP Family Medicine; Visit Provider Nurse Practitioner
DX: K90.0 Celiac disease (principal); K21.9 Gastro-esophageal reflux disease without esophagitis; R74.8 Abnormal levels of other serum enzymes; R19.7 Diarrhea, unspecified
CPT/HCPCS: 74240; 74248

== ENCOUNTER → 2024-02-24 07:53 | Outpatient (BNV) | payer OTHER, SELFPAY | PROVIDERS: PCP Family Medicine; Visit Provider Radiology Diagnostic Radiology | DX: R19.7 Diarrhea, unspecified (principal) | CPT/HCPCS: 74246 ==

== ENCOUNTER 2024-04-16 09:56 | Day surgery (SDC) | payer OTHER, SELFPAY ==
[2024-04-14 11:52] VITALS: BMI 28.2
[2024-04-16 10:08] VITALS: BMI 27.5
[2024-04-16 10:24] VITALS: BP 118/86; PULSE 80; RESP 16; TEMP 36.9; O2SAT 98
[2024-04-16] MEDS: Lactated Ringers 1,000 ML 100 ML IVCONT (10:31)
--- NOTE | 2024-04-16 10:40 | HO.ANESPROP2 ---
Documented by User: Nikki Cohen NP 04/15/24 08:44 HPI - Anesthesia Eval Consult details Narrative: 38yo M for Colonoscopy PMFSH Active Problems Active Problems: All Active Problems Pre-op examination (Acute) GERD (gastroesophageal reflux disease) (Acute) Celiac disease (Acute) Diarrhea (Acute) Elevated lipase (Acute) Asthma (Acute) Family History Family History (Updated 11/21/23 @ 09:52 by LOKESH Holland) Maternal Grandmother Cancer Family history of problems with anesthesia: No Surgical History Surgical History (Updated 04/16/24 @ 10:07 by Dilma Manuel RN) H/O endoscopy History of Problems with Anesthesia: No Social History Social History Household Members: None Alcohol intake: current Alcohol intake frequency: holidays/special occasions only Patient Tobacco Use Status: Never used Tobacco Use of substances other than those prescribed or required for medical reasons: No Are you DNR?: No Advance Directives: No Advance Directives Information Provided: Yes Advance Directives on File: No Recently lost weight without trying: No Nutrition Risks: No Nutritional Risk Poor oral hygiene: No Meds Allergies Allergy/AdvReac Type Severity Reaction Status Date / Time amoxicillin AdvReac Hives Verified 11/21/23 09:49 Exam Height,Weight and Vital Signs: Height 6 ft 2 in Weight 99.79 kg Assessment and Plan Assessment Anesthesia Assessment: Chart Reviewed Final Anesthetic Review Family History of Problems with Anesthesia: No History of Problems with Anesthesia: No Documented by User: Faustina Steward DO 04/16/24 10:40 PMFSH Family History Family History (Updated 11/21/23 @ 09:52 by LOKESH Holland) Maternal Grandmother Cancer Family history of problems with anesthesia: No Surgical History Surgical History (Updated 04/16/24 @ 10:07 by Dilma Manuel RN) H/O endoscopy History of Problems with Anesthesia: No Social History Social History Household Members: None Alcohol intake: current Alcohol intake frequency: holidays/special occasions only Patient Tobacco Use Status: Never used Tobacco Use of substances other than those prescribed or required for medical reasons: No Are you DNR?: No Advance Directives: No Advance Directives Information Provided: Yes Advance Directives on File: No Recently lost weight without trying: No Nutrition Risks: No Nutritional Risk Poor oral hygiene: No Meds Allergies Allergy/AdvReac Type Severity Reaction Status Date / Time amoxicillin AdvReac Hives Verified 11/21/23 09:49 Exam Exam Date and Time: 04/16/24 1040 Height,Weight and Vital Signs: Height 6 ft 2 in Weight 99.79 kg Vital Signs Temperature 98.4 F 04/16/24 10:24 Pulse Rate 80 04/16/24 10:24 Respiratory Rate 16 04/16/24 10:24 Blood Pressure 118/86 04/16/24 10:24 Pulse Oximetry 98 04/16/24 10:24 Oxygen Delivery Method Room Air 04/16/24 10:24 Temperature 98.4 F 04/16/24 10:24 Pulse Rate 80 04/16/24 10:24 Respiratory Rate 16 04/16/24 10:24 Blood Pressure 118/86 04/16/24 10:24 Pulse Oximetry 98 04/16/24 10:24 Oxygen Delivery Method Room Air 04/16/24 10:24 Airway Mallampati Class: II TM Dist: >3cm Neck ROM: Full Loose/Missing/Broken Teeth: No (patient denies any loose or broken teeth) Heart: S1S2 Lungs: CTAB Assessment and Plan Assessment Anesthesia Assessment: Anesthesia Plan Discussed Final Anesthetic Review Family History of Problems with Anesthesia: No History of Problems with Anesthesia: No NPO: Yes ASA Class: II Final Preanesthetic Review: No Changes in Pt Med Stat, Meds/Allgs Chart Reviewed, Consent Obtained/Reviewed and Anes Risks/Benef Reviewed Patient Risk: Low Procedure Risk: Low Anesthetic Plan Anesthetic Plan: MAC: and Agree w/ Assess. and Plan Disposition: Standard PACU
--- NOTE | 2024-04-16 11:59 | MHC.SHP ---
Pre-Procedural Eval Section A - 24 Hr Update-Section A only Date of Service: 04/16/24 Section B - Complete if H&P > 30 days Chief Complaint: Diarrhea, change in bowel habits Details of Present Illness: celiac dz Present Medications: see Short Stay Collaborative assessment Allergies: Allergies Allergy/AdvReac Type Severity Reaction Status Date / Time amoxicillin AdvReac Hives Verified 11/21/23 09:49 Review of Systems Review of Systems Comment: Ten point ROS negative Exam Exam Comment: Gen appear: No acute distress HEENT: no icterus Chest: No overt resp distress Abd: soft, nontender, nondistended Psych: Stable affect, answering questions appropriately Neuro: A/Ox3 noted to move all extremities spontaneously Ext: no peripheral edema Plan Diagnosis/Plan: Unchanged I have reviewed the history and physical and performed a pertinent physical examination on my patient. No changes have occurred unless specified. Time Spent With Patient Time: Total time managing care of this patient today ____ minutes.
--- NOTE | 2024-04-16 12:30 | P.OPN-COLO_ITS ---
Colonoscopy Operative Note Operative Note Date of Service: 04/16/24 Narrative: Procedure: Colonoscopy Indication: Change in bowel habits, diarrhea Endoscopist: Mandy Leslie MD Anesthesia Provider: Promise Salinas CRNA Anesthesia type: MAC Instrument: Olympus [id number] Consent: Indication, risks vs benefits, and alternatives were discussed with the patient who gave written informed consent to proceed. EKG, pulse, pulse oximetry and blood pressure were monitored throughout the procedure. Please see anesthesia flowsheet. Procedure: The patient was brought to the procedure room and placed in the left lateral decubitus position. IV medications were administered by the anesthesia provider in attendance. A digital rectal exam was performed which was normal. A distal attachment cap was affixed to the tip of the colonoscope which was then inserted through the anus and advanced through the colon to the cecum at 75 cm,and terminal ileum. Appendiceal orifice and ileocecal valve were identified. Mucosa was carefully examined under high definition white light as the instrument was slowly withdrawn in a retrograde panoramic fashion. Retroflexion was performed in rectum. The procedure was not difficult. There were no immediate obvious complications. The quality of the prep was BBPS: 2+3+3 = adequate Withdrawal time 6 minutes. Limitations: No limitations. Findings: Mucosa: Normal to cecum and terminal ileum. Cold forceps biopsies were taken in the right and left side of the colon to rule out microscopic colitis. Protruding lesions: * Medium internal hemorrhoids without stigmata of recent bleeding. Excavated lesions: * Mild diverticulosis of sigmoid colon. Impression: 1. Normal colon and terminal ileum mucosa 2. Internal hemorrhoids 3. Diverticulosis Recommendations: - Follow path results. - Colorectal cancer screening to begin at 45 years of age
[2024-04-16 12:32] VITALS: BP 100/61; PULSE 66; RESP 16; TEMP 36.3; O2SAT 97
[2024-04-16 12:45] VITALS: BP 113/66; PULSE 67; RESP 16; O2SAT 97
[2024-04-16 12:47] VITALS: BP 113/66; PULSE 60; RESP 18; TEMP 36.2; O2SAT 100
== END 2024-04-16 13:53 | disposition home or self-care (01) ==
PROVIDERS: PCP Family Medicine; Visit Provider Internal Medicine
PROC: 0DJD8ZZ Inspection of Lower Intestinal Tract, Via Natural or Artificial Opening Endoscopic (ICD-10-PCS; CPT 45378; principal; 2024-04-16 11:30)
DX: K62.5 Hemorrhage of anus and rectum (principal); R19.7 Diarrhea, unspecified; K90.0 Celiac disease; K86.81 Exocrine pancreatic insufficiency; K57.30 Diverticulosis of large intestine without perforation or abscess without bleeding; K64.8 Other hemorrhoids; R74.8 Abnormal levels of other serum enzymes; K21.9 Gastro-esophageal reflux disease without esophagitis; Z88.1 Allergy status to other antibiotic agents
CPT/HCPCS: 45380; 88305; J2003; J2704

== ENCOUNTER → 2024-04-16 09:56 | Outpatient (BNV) | payer OTHER, SELFPAY | PROVIDERS: PCP Family Medicine; Visit Provider Internal Medicine | DX: R19.7 Diarrhea, unspecified (principal); K57.30 Diverticulosis of large intestine without perforation or abscess without bleeding; K64.8 Other hemorrhoids | CPT/HCPCS: 45380 ==

== ENCOUNTER 2024-04-29 11:57 | Outpatient (AMB) | payer OTHER, SELFPAY ==
--- NOTE | 2024-04-29 12:21 | A.OFFVIS_ITS ---
Vital Signs 04/29/24 12:41 Height 6 ft 2 in Weight 216 lb 7.903 oz BMI 27.8 BP 112/67 Blood Pressure Location Lt brachial Position Sitting Pulse 66 Intake Visit Reasons: s/p colon Intake Note: Lane presents to in office follow up s/p colonoscopy. CC: Patient reports doing well and denies having any GI symptoms or concerns. [employer] Consultant Required: No Accompanied by: Self / Same As Patient Allergies amoxicillin Adverse Reaction (Verified 04/29/24 12:45) Hives HPI HPI s/p colon: Details: Assessment & Plan (1) Celiac disease: Code(s): K90.0 - Celiac disease Category: Medical (2) GERD (gastroesophageal reflux disease): Code(s): K21.9 - Gastro-esophageal reflux disease without esophagitis Category: Medical (3) Elevated lipase: Comment: Seems to have normalized on repeat testing Code(s): R74.8 - Abnormal levels of other serum enzymes Category: Medical (4) Diarrhea: Code(s): R19.7 - Diarrhea, unspecified Category: Medical (5) Pre-op examination: Code(s): Z01.818 - Encounter for other preprocedural examination Category: Medical Plan He was doing better for a while and had some formed stools, but then 3 days ago he started feeling poorly with an upset stomach and diarrhea again. To his knowledge he has been good about avoiding gluten so he is uncertain what is driving this. It distresses him that his stooling tends to be pale yellow colored or sometimes looks like ?black beans mixed with carrots. ? He is concerned that something is wrong MS worries him. We did upper endoscopy and there certainly was no signs of bleeding higher up in the stomach. We certainly could do it colonoscopy determine if there is anything like microscopic colitis contributing to his ongoing symptoms. When his symptoms are bad he has worsening heartburn and although the famotidine controls it well he did have 1 episode where he did not have access to the famotidine and he suffered during the day. 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 He does have an upcoming upper GI study which was ordered to try to investigate the ongoing heartburn issues. After discussion he decides that he will have a colonoscopy ordered and if we decide there is some other pathology we can always cancel it. There are no prior problems with anesthesia or sedation. There are no cardiac or respiratory problems to consider. There are no infectious disease problems. I will see him after his December 25 upper GI study and at that time will evaluate the Carafate. Orders: Orders FITS Today R19.7 - Diarrhea, unspecified Colonoscopy - GI Use Only Today R19.7 - Diarrhea, unspecified Medications: New sodium,potassium,mag sulfates 17.5-3.13-1.6 gram (Suprep Bowel Prep Kit) 480 mL orally; FOR COLONOSCOPY PREP 354 mL 0RF sucralfate (Carafate) LABS Fit test not obtained COLONOSCOPY 04/16/24 Findings: Mucosa: Normal to cecum and terminal ileum. Cold forceps biopsies were taken in the right and left side of the colon to rule out microscopic colitis. Protruding lesions: * Medium internal hemorrhoids without stigmata of recent bleeding. Excavated lesions: * Mild diverticulosis of sigmoid colon. Impression: 1. Normal colon and terminal ileum mucosa 2. Internal hemorrhoids 3. Diverticulosis Recommendations: - Follow path results. - Colorectal cancer screening to begin at 45 years of age BIOPSY Received: 04/16/24 Diagnosis A. Colon, right, biopsy: Colonic mucosa within normal limits; negative for active, chronic or microscopic colitis. B. Colon, left, biopsy: Colonic mucosa within normal limits; negative for active, chronic or microscopic colitis UGI 02/24/24 FINDINGS: UPPER GI SERIES Dual and single contrast images of the esophagus demonstrate normal caliber, contour, and mucosal pattern. No evidence of stricture, mass, or ulcerations identified. Esophageal peristalsis is mildly disorganized. No evidence of hiatus hernia identified. No significant gastroesophageal reflux was seen during the course of the examination and on reflux views. Dual contrast and single contrast images of the stomach demonstrated a normal contour. The gastric rugal folds have a mildly thickened appearance suggestive of mild gastritis. No masses or ulcerations are seen. Contrast freely passed into the gastric antrum and duodenal bulb without delay. Single and air-contrast images of the duodenal bulb demonstrate no abnormality. The duodenal sweep has a normal appearance, course, and mucosal fold appearance. SMALL BOWEL SERIES: Diesel Engine Tester view demonstrates normal bowel gas pattern. No organomegaly. No abnormal calcifications. Bone island noted in the right femoral neck. No additional bony abnormality. The imaged small bowel demonstrates thickened folds of the proximal jejunum, as well as thickened and mild jejunalization of folds in the ileum and terminal ileum. There is also mild dilution of contrast as it progresses to the right colon. Findings are consistent with a diagnosis of celiac disease. Contrast opacifies the right colon after 60 minutes. FLUOROSCOPY TIME: 4 minutes 1 second Number of Spot Images: 11 Number of Cine: 11 DOSE AREA PRODUCT: 3665 uGy-m2 (microgray-meter squared) FL/FL upper GI small bowel IMPRESSION: 1. Mildly disorganized esophageal peristalsis. 2. Mildly thickened appearance of the gastric rugal folds, suggestive of mild gastritis. 3. Small bowel series showing findings highly suggestive of celiac disease. Contrast reaches the right colon in 60 minutes. TODAYS VISIT He continues to feel better and better since controlling gluten in his diet. He is not needing the carafate of the famotidine now. He asks for hemoglobin A1c tests because he says he has been having paresthesias in his fingertips and his toes and it concerns him because he knows he has a family history of diabetes. I explained to him that A1c is not a test to diagnose diabetes but rather is use to monitor already established diabetes. I explained to him that a fasting blood glucose level and a 2 hour glucose tolerance test would be more appropriate for diagnosis. With this he is agreeable to these tests. It is also entirely possible that his paresthesias are due to vitamin absorption problems particularly that of B12 which could be causing something of a stocking-glove neuropathy. Because of this I also suggest we test these levels. ROV 8 weeks for exploration of paresthesia. [facility] Medical History (Updated 04/29/24 @ 13:12 by CATHY Pino) Pre-op examination Surgical History H/O colonoscopy H/O endoscopy Family History Maternal Grandmother Cancer Social History Household Members: None Alcohol intake: current Alcohol intake frequency: holidays/special occasions only Patient Tobacco Use Status: Never used Tobacco Review of Systems Const Denies fatigue, Denies fever(s), Denies night sweats, Denies poor appetite and Denies weight loss Eyes Details: GLASSES Reports requires corrective lenses ENT Reports Normal hearing present, Denies dental pain, Denies dysphagia, Denies hearing loss, Denies mouth pain, Denies odynophagia, Denies throat swelling, Denies tongue swelling and Reports other (Dentition adequate) Card Reports no additional complaints Resp Reports no additional complaints GI Details: Denies abdominal pain, Denies melena, Denies bloating, Denies hematochezia, Denies constipation, Denies GI cramping, Denies dysphagia, Denies excessive flatus, Denies early satiety, Denies heartburn, Denies diarrhea, Denies nausea, Denies odynophagia, Denies vomiting and Denies hematemesis Musc Reports numbness Skin/Breast Denies pruritus, Denies lesions, Denies rash and Denies jaundice Neuro Reports Normal hearing present, Denies Abnormal speech present and Reports numbness Endo Denies fatigue Aller/Immun Denies throat swelling and Denies tongue swelling Physical Exam Vital Signs: Last Vital Signs Pulse 66 04/29/24 12:41 BP 112/67 04/29/24 12:41 BMI result Body Mass Index 27.8 Const General: cooperative, no acute distress, well developed and well groomed Nutritional Appearance: average body habitus and well nourished Orientation/consciousness: oriented to person, oriented to place and oriented to time Limitations: No language barrier HEENT Head: Yes normocephalic and Yes atraumatic Eyes General: appearance normal, both eyes and all related structures Pupils: Equal, round and reactive pupils present Neck Neck: Yes normal visual inspection and Yes no lymphadenopathy Resp Effort & Inspection: normal respiratory effort and able to speak in complete sentences GI Inspection: No distended and No Abdominal panniculus present Palpation (GI): Soft to palpation, nontender, no guarding, not rigid and No hepatosplenomegaly present Percussion: Yes normal to percussion Auscultation: normal bowel sounds Rectal Exam - Male: Yes deferred Neuro General: oriented to person, oriented to place and oriented to time Cranial nerves: Yes Equal, round and reactive pupils present and Yes Normal hearing present Speech: No Abnormal speech present Extrem General: Yes normal to inspection Psych Appearance: grossly normal and well kempt Mental Status: mental status grossly normal Speech and movement: Normal speech and movement present Affect: normal affect Attitude: cooperative Thought process: Normal thought process present and not confabulating Thought content: Normal thought content present Insight: Fair insight present (Psych) Judgement: Fair judgement present (Psych) Results Reviewed Results Reviewed: COLONOSCOPY 04/16/24 Findings: Mucosa: Normal to cecum and terminal ileum. Cold forceps biopsies were taken in the right and left side of the colon to rule out microscopic colitis. Protruding lesions: * Medium internal hemorrhoids without stigmata of recent bleeding. Excavated lesions: * Mild diverticulosis of sigmoid colon. Impression: 1. Normal colon and terminal ileum mucosa 2. Internal hemorrhoids 3. Diverticulosis Recommendations: - Follow path results. - Colorectal cancer screening to begin at 45 years of age BIOPSY Received: 04/16/24 Diagnosis A. Colon, right, biopsy: Colonic mucosa within normal limits; negative for active, chronic or microscopic colitis. B. Colon, left, biopsy: Colonic mucosa within normal limits; negative for active, chronic or microscopic colitis UGI 02/24/24 FINDINGS: UPPER GI SERIES Dual and single contrast images of the esophagus demonstrate normal caliber, contour, and mucosal pattern. No evidence of stricture, mass, or ulcerations identified. Esophageal peristalsis is mildly disorganized. No evidence of hiatus hernia identified. No significant gastroesophageal reflux was seen during the course of the examination and on reflux views. Dual contrast and single contrast images of the stomach demonstrated a normal contour. The gastric rugal folds have a mildly thickened appearance suggestive of mild gastritis. No masses or ulcerations are seen. Contrast freely passed into the gastric antrum and duodenal bulb without delay. Single and air-contrast images of the duodenal bulb demonstrate no abnormality. The duodenal sweep has a normal appearance, course, and mucosal fold appearance. SMALL BOWEL SERIES: Diesel Engine Tester view demonstrates normal bowel gas pattern. No organomegaly. No abnormal calcifications. Bone island noted in the right femoral neck. No additional bony abnormality. The imaged small bowel demonstrates thickened folds of the proximal jejunum, as well as thickened and mild jejunalization of folds in the ileum and terminal ileum. There is also mild dilution of contrast as it progresses to the right colon. Findings are consistent with a diagnosis of celiac disease. Contrast opacifies the right colon after 60 minutes. FLUOROSCOPY TIME: 4 minutes 1 second Number of Spot Images: 11 Number of Cine: 11 DOSE AREA PRODUCT: 3665 uGy-m2 (microgray-meter squared) FL/FL upper GI small bowel IMPRESSION: 1. Mildly disorganized esophageal peristalsis. 2. Mildly thickened appearance of the gastric rugal folds, suggestive of mild gastritis. 3. Small bowel series showing findings highly suggestive of celiac disease. Contrast reaches the right colon in 60 minutes. Assessment & Plan Assessment & Plan (1) Celiac disease: Code(s): K90.0 - Celiac disease Category: Medical (2) GERD (gastroesophageal reflux disease): Comment: resolved after following Celiac diet Code(s): K21.9 - Gastro-esophageal reflux disease without esophagitis Category: Medical (3) Paresthesia: Code(s): R20.2 - Paresthesia of skin Category: Medical (4) Hyperglycemia: Code(s): R73.9 - Hyperglycemia, unspecified Category: Medical Plan He continues to feel better and better since controlling gluten in his diet. He is not needing the carafate of the famotidine now. He asks for hemoglobin A1c tests because he says he has been having paresthesias in his fingertips and his toes and it concerns him because he knows he has a family history of diabetes. I explained to him that A1c is not a test to diagnose diabetes but rather is use to monitor already established diabetes. I explained to him that a fasting blood glucose level and a 2 hour glucose to lerance test would be more appropriate for diagnosis. With this he is agreeable to these tests. It is also entirely possible that his paresthesias are due to vitamin absorption problems particularly that of B12 which could be causing something of a stocking-glove neuropathy. Because of this I also suggest we test these levels. ROV 8 weeks for exploration of paresthesia. Orders: Orders Glucose 2 Hour PP Today R20.2 - Paresthesia of skin, R73.9 - Hyperglycemia, unspecified Vitamin B12 and Folate Today R20.2 - Paresthesia of skin, R73.9 - Hyperglycemia, unspecified Basic Metabolic Panel Fasting Today R20.2 - Paresthesia of skin, R73.9 - Hyperglycemia, unspecified Coding Level of Care Code Est Pt Level 3 (94330) Diagnoses Celiac disease K90.0 GERD (gastroesophageal reflux disease) K21.9 Paresthesia R20.2 Hyperglycemia R73.9
[2024-04-29 12:41] VITALS: BP 112/67; PULSE 66; BMI 27.8
== END 2024-04-29 13:16 | disposition home or self-care (01) ==
PROVIDERS: PCP Family Medicine; Visit Provider Nurse Practitioner
DX: K90.0 Celiac disease (principal); K21.9 Gastro-esophageal reflux disease without esophagitis; R20.2 Paresthesia of skin; R73.9 Hyperglycemia, unspecified
CPT/HCPCS: 99213

== ENCOUNTER 2024-07-10 07:12 | Outpatient (REF) | payer OTHER, SELFPAY ==
--- OUTSIDE RECORDS SUMMARY | 2024-07-10 07:14 | XMS_ITS ---
Author Name [facility] Organization Unknown History of Medication Use Medication Directions Dispensed Refills Start Date End Date Stat itraconazole (SPORANOX) 100 MG capsule TK 1 C PO BID 03/15/2020 active Problems Problem Status Onset Date Problem Type Date of Resolution Source Encounter for sterilization active [facility] Pain in joint, lower leg active 2014-04-08 ProblemAct [facility] Dermatophytosis of nail active 2013-11-26 ProblemAct [facility] Immunizations Vaccine Date Source Lot Number Status Tdap 12/24/2012 [facility] [id number] completed Influenza Inactivated/Split Preservative Free IM 03/03/2014 [facility] completed
--- OUTSIDE RECORDS SUMMARY | 2024-07-10 07:14 | XMS_ITS | Encounter Summary ---
Author Organization [facility] Address [address] [place] [address] Care Team Providers Care Curriculum Coordinator Name Role Phone Eamon Mcnulty MD Primary Care Provider [phone] Encounter Details Date Type Department Care Team ([facility] Contact Info) Description 04/10/2023 Scanned Document [facility] Department of Pediatrics [address] [id number] Eamon Mcnulty MD [address] [place] [address] Social History Tobacco Use Types Packs/Day Years Used Date Smoking Tobacco: Never Smokeless Tobacco: Never Alcohol Use Standard Drinks/Week Comments Yes 0 (1 standard drink = 0.6 oz pur e alcohol) Sex and Gender Information Value Date Recorded Sex Assigned at Not on file Gender Identity Not on file Sexual Orientation Not on file documented as of this encounter Plan of Treatment Not on file documented as of this encounter Visit Diagnoses Not on filedocumented in this encounter Care Teams Curriculum Coordinator Relationship Specialty Start Date End Date Eamon Mcnulty MD [address] [place] [address] PCP - General Family Medicine 03/30/20 documented as of this encounter
--- OUTSIDE RECORDS SUMMARY | 2024-07-10 07:14 | XMS_ITS | Clinical Summary ---
Author Organization [facility] Address [address] [place] [address] Care Team Providers Care Child Study Team Director Name Role Phone Eamon Mcnulty MD Primary Care Provider [phone] Allergies Active Allergy Reactions Criticality Noted Date Comments Penicillins Hives Medium 09/12/2007 Medications Medication Sig Dispensed Refills Start Date End Date Status itraconazole (SPORANOX) 100 MG capsule TK 1 C PO BID 03/15/2020 Active Active Problems Problem Noted Date Diagnosed Date Pain in joint, lower leg 04/08/2014 Dermatophytosis of nail 11/26/2013 Immunizations Name Administration Dates Next Due Influenza Inactivated/Split Preservative Free IM 03/03/2014 Tdap 12/24/2012 Social History Tobacco Use Types Packs/Day Years Used Date Smoking Tobacco: Never Smokeless Tobacco: Never Tobacco Cessation:Counseling Given: Not Answered Alcohol Use Standard Drinks/Week Comments Yes 0 (1 standard drink = 0.6 oz pur e alcohol) Sex and Gender Information Value Date Recorded Sex Assigned at Not on file Gender Identity Not on file Sexual Orientation Not on file Last Filed Vital Signs Vital Sign Reading Time Taken Comments Blood Pressure 120/85 10/20/2015 4:32 PM EDT Pulse 94 10/20/2015 4:32 PM EDT Temperature 36.9 ??C (98.5 ??F) 10/20/2015 4:32 PM ED T Respiratory Rate 20 10/20/2015 4:32 PM EDT Oxygen Saturation - - Inhaled Oxygen Concentration - - Weight 99.8 kg (220 lb) 07/15/2023 1:14 PM EST Height 188 cm (6' 2 ) 07/15/2023 1:14 PM EST Body Mass Index 28.25 07/15/2023 1:14 PM EST Plan of Treatment Health Maintenance Due Date Last Done Comments Hepatitis C Virus Screening 1986 HIV Screening 09/23/1999 Hepatitis B Vaccines (1 of 3 - 19+ 3-dose series) 2005 DTaP/Tdap/Td Vaccines (2 - T d or Tdap) 12/24/2022 12/24/2012 Influenza Vaccine 01/02/2024 03/03/2014 COVID-19 Vaccine (2 - 2023-2 5 season) 2024 06/21/2021 HPV Vaccines Aged Out No longer eligi ble based on patient's age to complete this topic Pneumococcal Vaccine: Pediat helen (0-5 Years) and At-Risk Patients (6 to 49 Years) Aged Out No longer eligible b ased on patient's age to complete this topic Care Teams Child Study Team Director Relationship Specialty Start Date End Date Eamon Mcnulty MD [address] [place] [id number] PCP - General Family Medicine 03/30/20
[2024-07-10 08:05] LABS: Anion Gap 12 (12-20); Blood Urea Nitrogen 21 mg/dL (9-16); Calcium 9.5 mg/dL (8.4-10.2); Carbon Dioxide 25 mmol/L (22-29); Chloride 105 mmol/L (96-108); Estimated Glomerular Filt Rate > 60; Glucose Fasting 93 mg/dL (60-99); Potassium 4.2 mmol/L (3.3-5.1); Sodium 138 mmol/L (135-145)
[2024-07-10 08:42] LABS: Folate 5.2 ng/mL (> or = 4.0); Vitamin B12 633 pg/mL (200-900)
== END 2024-07-10 07:13 | disposition home or self-care (01) ==
LOC: HO.LAB 07:12
PROVIDERS: PCP Family Medicine; Visit Provider Nurse Practitioner
DX: R20.2 Paresthesia of skin (principal); R73.9 Hyperglycemia, unspecified
CPT/HCPCS: 36415; 80048; 82607; 82746

== ENCOUNTER 2024-10-06 13:10 | Outpatient (AMB) | payer OTHER, SELFPAY ==
--- NOTE | 2024-10-06 13:17 | MHC.OFFVIS ---
Vital Signs 10/06/24 13:18 Height 6 ft 2 in Weight 220 lb 7.396 oz BMI 28.3 BP 125/71 Blood Pressure Location Lt brachial Position Sitting Pulse 67 Intake Visit Reasons: follow up celiac disease Intake Note: Lane presents in the office as a follow up for celiac. CC: here to discuss labs and continuing GERD. 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 Allergies amoxicillin Adverse Reaction (Verified 10/06/24 13:26) Hives HPI HPI follow up celiac disease: Details: Assessment & Plan (1) Celiac disease: Code(s): K90.0 - Celiac disease Category: Medical (2) GERD (gastroesophageal reflux disease): Comment: resolved after following Celiac diet Code(s): K21.9 - Gastro-esophageal reflux disease without esophagitis Category: Medical (3) Paresthesia: Code(s): R20.2 - Paresthesia of skin Category: Medical (4) Hyperglycemia: Code(s): R73.9 - Hyperglycemia, unspecified Category: Medical Plan He continues to feel better and better since controlling gluten in his diet. He is not needing the carafate of the famotidine now. He asks for hemoglobin A1c tests because he says he has been having paresthesias in his fingertips and his toes and it concerns him because he knows he has a family history of diabetes. I explained to him that A1c is not a test to diagnose diabetes but rather is use to monitor already established diabetes. I explained to him that a fasting blood glucose level and a 2 hour glucose tolerance test would be more appropriate for diagnosis. With this he is agreeable to these tests. It is also entirely possible that his paresthesias are due to vitamin absorption problems particularly that of B12 which could be causing something of a stocking-glove neuropathy. Because of this I also suggest we test these levels. ROV 8 weeks for exploration of paresthesia. Orders: Orders Glucose 2 Hour PP Today R20.2 - Paresthesia of skin, R73.9 - Hyperglycemia, unspecified Vitamin B12 and Folate Today R20.2 - Paresthesia of skin, R73.9 - Hyperglycemia, unspecified Basic Metabolic Panel Fasting Today R20.2 - Paresthesia of skin, R73.9 - Hyperglycemia, unspecified LABS: Laboratory Tests 07/10/24 07:19 Estimated GFR > 60 Fasting Glucose 93 Vitamin B12 633 Folate 5.2 TODAY'S VISIT He has suddenly had increased GERD and HB. Taking OTC pepcid with good control. WIll pull TTGA to see if any hidden gluten concerns. We review the labs and I do not have any pressing concerns he has diabetes so I do not think he needs to do the glucose tolerance test. With regards to his paresthesias that are intermittent I do not think this is metabolic in nature. If this returns or worsens he may wish to discuss having an electromyelogram with his primary care provider. ROV 6 mos. PFSH Medical History Pre-op examination Surgical History H/O colonoscopy H/O endoscopy Family History Maternal Grandmother Cancer Social History Household Members: None Alcohol intake: current Alcohol intake frequency: holidays/special occasions only Patient Tobacco Use Status: Never used Tobacco Review of Systems Const Denies fatigue, Denies fever(s), Denies night sweats, Denies poor appetite and Denies weight loss Eyes Details: Glasses Reports requires corrective lenses ENT Reports Normal hearing present, Denies dental pain, Denies dysphagia, Denies hearing loss, Denies mouth pain, Denies odynophagia, Denies throat swelling, Denies tongue swelling and Reports other (Dentition adequate) Card Reports no additional complaints Resp Reports no additional complaints GI Details: Denies abdominal pain, Denies melena, Denies bloating, Denies hematochezia, Denies constipation, Denies GI cramping, Denies dysphagia, Denies excessive flatus, Denies early satiety, Reports heartburn, Reports diarrhea, Denies nausea, Denies odynophagia, Denies vomiting and Denies hematemesis Skin/Breast Denies pruritus, Denies lesions, Denies rash and Denies jaundice Neuro Reports Normal hearing present and Denies Abnormal speech present Endo Denies fatigue Aller/Immun Denies throat swelling and Denies tongue swelling Physical Exam Vital Signs: Last Vital Signs Pulse 67 10/06/24 13:18 BP 125/71 10/06/24 13:18 BMI result Body Mass Index 28.3 Const General: cooperative, no acute distress, well developed and well groomed Nutritional Appearance: well nourished and overweight Orientation/consciousness: oriented to person, oriented to place and oriented to time Limitations: No language barrier HEENT Head: Yes normocephalic and Yes atraumatic Eyes General: appearance normal, both eyes and all related structures Pupils: Equal, round and reactive pupils present Neck Neck: Yes normal visual inspection Resp Effort & Inspection: normal respiratory effort and able to speak in complete sentences GI Rectal Exam - Male: Yes deferred Skin General skin exam: no rashes or lesions noted, turgor normal, skin not dry, no jaundice, No spider nevi and no striae Rashes: no rashes Nails: normal Neuro General: oriented to person, oriented to place and oriented to time Cranial nerves: Yes Equal, round and reactive pupils present and Yes Normal hearing present Speech: No Abnormal speech present Extrem General: Yes normal to inspection, No clubbing, No cyanosis and No edema Psych Appearance: grossly normal and well kempt Mental Status: mental status grossly normal Speech and movement: Normal speech and movement present Affect: normal affect Attitude: cooperative Thought process: Normal thought process present and not confabulating Thought content: Normal thought content present Insight: Good insight present (Psych) Judgement: Good judgement present (Psych) Assessment & Plan Assessment & Plan (1) Celiac disease: Code(s): K90.0 - Celiac disease Category: Medical (2) GERD (gastroesophageal reflux disease): Comment: resolved after following Celiac diet Code(s): K21.9 - Gastro-esophageal reflux disease without esophagitis Category: Medical (3) Paresthesia: Code(s): R20.2 - Paresthesia of skin Category: Medical Plan He has suddenly had increased GERD and HB. Taking OTC pepcid with good control. WIll pull TTGA to see if any hidden gluten concerns. We review the labs and I do not have any pressing concerns he has diabetes so I do not think he needs to do the glucose tolerance test. With regards to his paresthesias that are intermittent I do not think this is metabolic in nature. If this returns or worsens he may wish to discuss having an electromyelogram with his primary care provider. ROV 6 mos. Orders: Orders Transglutaminase IgA Today K21.9 - Gastro-esophageal reflux disease without esophagitis, K90.0 - Celiac disease Transglutaminase Ab IgG Today K21.9 - Gastro-esophageal reflux disease without esophagitis, K90.0 - Celiac disease Coding Level of Care Code Est Pt Level 3 (37102) Diagnoses Celiac disease K90.0 GERD (gastroesophageal reflux disease) K21.9 Paresthesia R20.2
[2024-10-06 13:18] VITALS: BP 125/71; PULSE 67; BMI 28.3
--- OUTSIDE RECORDS SUMMARY | 2024-10-06 14:22 | XMS_ITS | Clinical Summary ---
Author Organization [facility] Address [address] [place] [address] Care Team Providers Care Medical Coordinator Pesticide Use Name Role Phone Eamon Mcnulty MD Primary Care Provider Allergies Active Allergy Reactions Criticality Noted Date Comments Penicillins Hives Medium 09/12/2007 Medications itraconazole (SPORANOX) 100 MG capsule TK 1 C PO BID 03/15/2020 Active Active Problems Problem Noted Date Diagnosed Date Pain in joint, lower leg 04/08/2014 Dermatophytosis of nail 11/26/2013 Immunizations Immunization Administration Dates Next Due Influenza Inactivated/Split Preservative Free IM 03/03/2014 Tdap 12/24/2012 Social History Tobacco Use Types Packs/Day Years Used Date Smoking Tobacco: Never Smokeless Tobacco: Never Tobacco Cessation:Counseling Given: Not Answered Alcohol Use Standard Drinks/Week Comments Yes 0 (1 standard drink = 0.6 oz pur e alcohol) Sex and Gender Information Value Date Recorded Sex Assigned at Not on file Legal Sex Male 5:24 PM EDT Gender Identity Not on file Sexual Orientation [...] - T d or Tdap) 12/24/2022 12/24/2012 COVID-19 Vaccine (2 - 2023-2 5 season) 2024 06/21/2021 Influenza Vaccine 01/01/2025 03/03/2014 HPV Vaccines Aged Out No longer eligi ble based on patient's age to complete this topic Pneumococcal Vaccine: Pediat helen (0-5 Years) and At-Risk Patients (6 to 49 Years) Aged Out No longer eligible b ased on patient's age to complete this topic Insurance [facility] Care Teams Medical Coordinator Pesticide Use Relationship Specialty Start Date End Date Eamon Mcnulty MD [address] [place] [id number] PCP - General Family Medicine 03/30/20
--- OUTSIDE RECORDS SUMMARY | 2024-10-06 14:22 | XMS_ITS | Encounter Summary ---
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 Remover Name Role Phone Eamon Mcnulty MD Primary Care Provider Encounter Details Date Type Department Care Team ([facility] st Contact Info) Description 04/10/2023 Scanned Document [facility] Department of Pediatrics [address] [phone] Eamon Mcnulty MD [address] [place] [address] Social History Tobacco Use Types Packs/Day Years [...] on filedocumented in this encounter Care Teams Planting Material Remover Relationship Specialty Start Date End Date Eamon Mcnulty MD [address] [place] [id number] PCP - General Family Medicine 03/30/20 documented as of this encounter
== END 2024-10-06 14:36 | disposition home or self-care (01) ==
LOC: HO.HGI 13:10
PROVIDERS: PCP Family Medicine; Visit Provider Nurse Practitioner
DX: K90.0 Celiac disease (principal); K21.9 Gastro-esophageal reflux disease without esophagitis; R20.2 Paresthesia of skin
CPT/HCPCS: 99213

== ENCOUNTER → 2024-10-06 13:10 | Outpatient (BNVA) | payer OTHER, SELFPAY | PROVIDERS: PCP Family Medicine; Visit Provider Nurse Practitioner ==

== ENCOUNTER 2024-10-27 11:15 | Outpatient (REF) | payer OTHER, SELFPAY ==
[2024-10-28 21:24] LABS: Transglutaminase Ab IgG <1.0 U/mL; Transglutaminase IgA 1.9 U/mL
== END 2024-10-27 11:16 | disposition home or self-care (01) ==
LOC: HO.LAB 11:15
PROVIDERS: PCP Family Medicine; Visit Provider Nurse Practitioner
DX: K90.0 Celiac disease (principal); K21.9 Gastro-esophageal reflux disease without esophagitis
CPT/HCPCS: 36415; 86364

== ENCOUNTER 2025-04-08 08:49 | Outpatient (AMB) | payer OTHER, SELFPAY ==
--- NOTE | 2025-04-08 08:52 | MHC.OFFVIS ---
Vital Signs 04/08/25 08:53 Height 6 ft 2 in Weight 222 lb 10.67 oz BMI 28.6 BP 127/76 Blood Pressure Location Lt brachial Position Sitting Pulse 68 Intake Visit Reasons: celiac disease Intake Note: Lane presents in the office as a follow up for his celiac. 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 Taking OTC pepcid with good control. WIll pull TTGA to see if any hidden gluten concerns. We review the labs and I do not have any pressing concerns he has diabetes so I do not think he needs to do the glucose tolerance test. With regards to his paresthesias that are intermittent I do not think this is metabolic in nature. If this returns or worsens he may wish to discuss having an electromyelogram with his primary care provider. ROV 6 mos. Orders: Orders Transglutaminase IgA Today K21.9 - Gastro-esophageal reflux disease without esophagitis, K90.0 - Celiac disease Transglutaminase Ab IgG Today K21.9 - Gastro-esophageal reflux disease without esophagitis, K90.0 - Celiac disease LABS: Laboratory Tests 10/27/24 12:06 Tiss Transglutamin IgG <1.0 Tiss Transglutamin IgA 1.9 TODAY'S VISIT [facility] Medical History Pre-op examination Surgical History H/O colonoscopy H/O endoscopy Family History Maternal Grandmother Cancer Social History Household Members: None Alcohol intake: current Alcohol intake frequency: holidays/special occasions only Patient Tobacco Use Status: Never used Tobacco Review of Systems Const Denies fatigue, Denies fever(s), Denies night sweats, Denies poor appetite and Denies weight loss Eyes Details: GLASSESA Reports requires corrective lenses ENT Reports Normal hearing present, Denies dental pain, Denies dysphagia, Denies hearing loss, Denies mouth pain, Denies odynophagia, Denies throat swelling, Denies tongue swelling and Reports other (Dentition adequate) GI Details: Denies abdominal pain, Denies melena, Denies bloating, Denies hematochezia, Denies constipation, Denies GI cramping, Denies dysphagia, Denies excessive flatus, Denies early satiety, Denies heartburn, Denies diarrhea, Denies nausea, Denies odynophagia, Denies vomiting and Denies hematemesis Skin/Breast Denies pruritus, Denies lesions, Denies rash and Denies jaundice Neuro Reports Normal hearing present and Denies Abnormal speech present Endo Denies fatigue Aller/Immun Denies throat swelling and Denies tongue swelling Physical Exam Vital Signs: Last Vital Signs Pulse 68 04/08/25 08:53 BP 127/76 04/08/25 08:53 BMI result Body Mass Index 28.6 Const General: cooperative, no acute distress, well developed and well groomed Nutritional Appearance: well nourished, obese and overweight Orientation/consciousness: oriented to person, oriented to place and oriented to time Limitations: No language barrier, ambulation with cane, ambulation with walker and wheelchair HEENT Head: Yes normocephalic and Yes atraumatic Eyes General: appearance normal, both eyes and all related structures Pupils: Equal, round and reactive pupils present Neck Neck: Yes normal visual inspection and Yes no lymphadenopathy Thyroid: Thyroid normal Resp Effort & Inspection: normal respiratory effort and able to speak in complete sentences Auscultation: clear to auscultation bilaterally Cardio Rate: regular rate Rhythm: regular rhythm Heart sounds: Normal, physiologic split S2 sound present Peripheral pulses: radial pulses present and posterior tibial pulses present GI Inspection: No distended and No Abdominal panniculus present Palpation (GI): Soft to palpation, nontender, no guarding, not rigid, No hepatosplenomegaly present and Hepatosplenomegaly present Percussion: Yes normal to percussion Auscultation: normal bowel sounds Rectal Exam - Male: Yes deferred Skin General skin exam: no rashes or lesions noted, turgor normal, skin not dry, no jaundice, No spider nevi and no striae Rashes: no rashes Nails: normal Neuro General: oriented to person, oriented to place and oriented to time Cranial nerves: Yes Equal, round and reactive pupils present and Yes Normal hearing present Speech: No Abnormal speech present Extrem General: Yes normal to inspection, No clubbing, No cyanosis and No edema Psych Thought process: Normal thought process present and not confabulating Thought content: Normal thought content present Insight: Good insight present (Psych) Judgement: Good judgement present (Psych) Assessment & Plan Assessment & Plan (1) Celiac disease: Code(s): K90.0 - Celiac disease Category: Medical (2) GERD (gastroesophageal reflux disease): Comment: resolved after following Celiac diet Code(s): K21.9 - Gastro-esophageal reflux disease without esophagitis Category: Medical Plan Taking OTC pepcid with good control. He generally is continuing to work and avoiding gluten and since we started working together he has had good resolution of symptoms. Coding Level of Care Code Est Pt Level 3 (69627) Diagnoses Celiac disease K90.0 GERD (gastroesophageal reflux disease) K21.9
[2025-04-08 08:53] VITALS: BP 127/76; PULSE 68; BMI 28.6
== END 2025-04-08 09:34 | disposition home or self-care (01) ==
LOC: HO.HGI 08:49
PROVIDERS: PCP Family Medicine; Visit Provider Nurse Practitioner
DX: K90.0 Celiac disease (principal); K21.9 Gastro-esophageal reflux disease without esophagitis
CPT/HCPCS: 99213